=== PATIENT | female | born 1955 | race American Indian/Alaskan Native ===

== ENCOUNTER 2018-11-10 02:02 | Inpatient (IN) | payer BC ==
[2018-11-10 03:24] LABS: Hematocrit 24.4 % (30.3-42.9); Hemoglobin 8.3 gm/dl (10.1-14.3); Mean Corpuscular HGB Conc 34 % (30-34); Mean Corpuscular Volume 89 fl (79-97); Platelet Count 225 K/mm3 (140-440); Red Blood Count 2.76 M/mm3 (3.65-5.03); Red Cell Distribution Width 13.6 % (13.2-15.2)
[2018-11-10 03:36] LABS: INR 1.15 (0.87-1.13)
[2018-11-10 03:45] LABS: Calcium 8.7 mg/dL (8.4-10.2)
--- NOTE | 2018-11-10 03:50 | XRay Report ---
PROCEDURE: XR CHEST 1V AP TECHNIQUE: Chest radiograph single view. HISTORY: weakness COMPARISONS: None . FINDINGS: Heart: The heart is enlarged.. Mediastinum/Vessels: Normal. Lungs/Pleural space: There are bilateral pulmonary infiltrates greater on the right. There is no ple ural effusion or pneumothorax.. Bony thorax: No acute osseous abnormality. Life support devices: None. IMPRESSION: The heart is enlarged.. There are bilateral pulmonary infiltrates greater on the right. There is no pleural effusion or pneum othorax... This document is electronically signed by Germain Goss MD., November 10 2018 03:48:23 AM ET
[2018-11-10] MEDS ORDERED: LEVAQUIN 500MG/100ML 500 MG/100 ML BAG IV ONE (04:16)
[2018-11-10] MEDS ORDERED: LASIX IV ONE (04:17)
--- NOTE | 2018-11-10 04:18 | Emergency Department Report ---
ED General Adult HPI - General Chief complaint: Weakness Stated complaint: WEAKNESS Time Seen by Provider: 11/10/18 04:03 Source: patient, family, EMS (ems notes not available at time of chart dictation), RN notes reviewed Mode of arrival: Stretcher Limitations: Physical Limitation - History of Present Illness Initial comments: This is a 63-year-old female. The patient is not known to this provider previously. She recently came here from [place]. She reports a history of chronic lymphedema and her upper or lower extremities, and possible renal i nsufficiency. She also has a history of hypertension and high cholesterol. She reports that she was admitted to a hospital in [place] about a month ago for hypertension and elevated blood pressure. She does not know her last her most recent creatinine. She presents to the emergency room today with a complaint of painless weakness, malaise, fatigue, cough, shortness of breath. Symptoms present 1 week. Symptoms worse with physical exertion and decreased with rest. She endorses chronic shortness of breath. She endorses chronic lower and upper extremity edema. She does not think that her edema is worse than baseline. She denies irritative, obstructive urinary symptoms. -: Gradual, days(s), week(s) (1) Severity scale (0 -10): 0 Consistency: intermittent Improves with: rest Worsens with: movement Associated Symptoms: cough, loss of appetite, malaise, nausea/vomiting, shortness of breath, weakness - Related Data Home Medications Medication Instructions Recorded Confirmed Last Taken AtorvaSTATin [Lipitor] 80 mg PO HS 11/10/18 11/10/18 Unknown Calcium Carbonate/Vitamin D3 1 tab PO DAILY 11/10/18 11/10/18 Unknown [Calcium 500-Vit D3 600 Tablet] Carvedilol 1 tab PO BID 11/10/18 11/10/18 Unknown Ferrous Sulfate [Iron] 325 mg PO 3XW 11/10/18 11/10/18 Unknown Ondansetron [Zuplenz] 1 tab PO Q6HR PRN 11/10/18 11/10/18 Unknown Sodium Bicarbonate 1 tab PO BID 11/10/18 11/10/18 Unknown amLODIPine [Norvasc] 1 tab PO DAILY 11/10/18 11/10/18 Unknown glyBURIDE [Glyburide] 1 tab PO DAILY 11/10/18 11/10/18 Unknown hydrALAZINE [Apresoline TAB] 2 tab PO QID 11/10/18 11/10/18 Unknown metFORMIN [Glucophage] 1 tab PO BID 11/10/18 11/10/18 Unknown Allergies Allergy/AdvReac Type Severity Reaction Status Date / Time No Known Allergies Allergy Unverified 11/10/18 03:12 ED Review of Systems ROS: Stated complaint: WEAKNESS Other details as noted in HPI Constitutional: malaise, weakness. denies: fever Eyes: denies: vision change Respiratory: cough, shortness of breath, SOB with exertion, SOB at rest, wheezing Cardiovascular: dyspnea on exertion, edema. denies: chest pain Gastrointestinal: denies: vomiting Genitourinary: denies: dysuria Musculoskeletal: arthralgia, myalgia Skin: denies: lesions Psychiatric: as per HPI ED Past Medical Hx - Past Medical History Previous Medical History?: Yes Hx Hypertension: Yes Hx Diabetes: Yes Additional medical history: Breast CA, kidney problem (unspecified) - Surgical History Past Surgical History?: Yes Additional Surgical History: lumpectomy, x2 - Social History Smoking Status: Never Smoker Substance Use Type: None - Medications Home Medications: Home Medications Medication Instructions Recorded Confirmed Last Taken Type AtorvaSTATin [Lipitor] 80 mg PO HS 11/10/18 11/10/18 Unknown History Calcium Carbonate/Vitamin D3 1 tab PO DAILY 11/10/18 11/10/18 Unknown History [Calcium 500-Vit D3 600 Tablet] Carvedilol 1 tab PO BID 11/10/18 11/10/18 Unknown History Ferrous Sulfate [Iron] 325 mg PO 3XW 11/10/18 11/10/18 Unknown History Ondansetron [Zuplenz] 1 tab PO Q6HR PRN 11/10/18 11/10/18 Unknown History Sodium Bicarbonate 1 tab PO BID 11/10/18 11/10/18 Unknown History amLODIPine [Norvasc] 1 tab PO DAILY 11/10/18 11/10/18 Unknown History glyBURIDE [Glyburide] 1 tab PO DAILY 11/10/18 11/10/18 Unknown History hydrALAZINE [Apresoline TAB] 2 tab PO QID 11/10/18 11/10/18 Unknown History metFORMIN [Glucophage] 1 tab PO BID 11/10/18 11/10/18 Unknown History ED Physical Exam - General Limitations: No Limitations General appearance: alert, in no apparent distress - Head Head exam: Present: atraumatic, normocephalic - Eye Eye exam: Present: normal appearance, EOMI. Absent: nystagmus - ENT ENT exam: Present: normal exam, normal orophraynx, mucous membranes moist, normal external ear exam - Neck Neck exam: Present: normal inspection, full ROM. Absent: tenderness, meningismus - Respiratory Respiratory exam: Present: rales, rhonchi. Absent: respiratory distress - Cardiovascular Cardiovascular Exam: Present: regular rate, normal rhythm, normal heart sounds, systolic murmur (2/6 systolic murmur, heard greatest at the right and left seco nd intercostal space). Absent: bradycardia, tachycardia, irregular rhythm, diastolic murmur, rubs, gallop - GI/Abdominal GI/Abdominal exam: Present: soft. Absent: distended, tenderness, guarding, rebound, rigid, pulsatile mass - Extremities Exam Extremities exam: Present: normal inspection, full ROM, pedal edema (2+ edema in the lower extremities bilaterally. Edema noted in the upper extremities bilaterally.), other (2+ pulses noted in the bilateral upper, lower extremities. Compartments soft. No long bony tenderness. The pelvis is stable.). Absent: calf tenderness - Back Exam Back exam: Present: normal inspection, full ROM. Absent: tenderness, CVA tenderness (R), paraspinal tenderness, vertebral tenderness - Neurological Exam Neurological exam: Present: alert, oriented X3, CN II-XII intact, other (Extraocular movements intact. Tongue midline. No facial droop. Facial sensation intact to light touch in the V1, V2, V3 distribution bilaterally. 5 and 5 strength in 4 extremities.. Sensation is intact to light touch in 4 extremities.). Absent: motor sensory deficit - Psychiatric Psychiatric exam: Present: normal affect, normal mood - Skin Skin exam: Present: warm, dry, intact, normal color. Absent: rash ED Course Vital Signs 11/10/18 11/10/18 11/10/18 02:40 03:00 04:00 Temperature 98.5 F Pulse Rate 83 81 77 Respiratory 22 21 19 Rate Blood Pressure 134/65 134/65 160/74 Blood Pressure 134/65 [Right] O2 Sat by Pulse 89 95 91 Oximetry 11/10/18 11/10/18 05:00 05:15 Temperature Pulse Rate 81 89 Respiratory 23 18 Rate Blood Pressure 191/86 Blood Pressure 143/68 [Right] O2 Sat by Pulse 90 95 Oximetry - Reevaluation(s) Reevaluation #1: 11/10/18 05:05 Differential diagnosis, including not limited to: Renal insufficiency, pulmonary edema, dependent edema, lymphedema, pneumonia Assessment and plan: 63-year-old female with weakness, shortness of breath, malaise and fatigue. Has crackles and rales on her physical examination, is hypoxic on room air to 88, 89%. X-ray interpretation by radiology is reviewed and appreciated, however, based off of the patient's history, I suspect that her etiology for her shortness of breath is multifactorial, may include fluid overload, as well as pneumonia. She will be given supplemental oxygen, 60 mg of Lasix, appropriate Levaquin therapy, and she'll be admitted to the medical service. The Hospital physician, Dr. Suman Jauregui has accepted the patient to the medical service. ED Medical Decision Making - Lab Data Result diagrams: 11/10/18 03:15 11/10/18 03:15 Vital Signs 11/10/18 11/10/18 11/10/18 02:40 03:00 04:00 Temperature 98.5 F Pulse Rate 83 81 77 Respiratory 22 21 19 Rate Blood Pressure 134/65 134/65 160/74 Blood Pressure 134/65 [Right] O2 Sat by Pulse 89 95 91 Oximetry Lab Results 11/10/18 11/10/18 11/10/18 Range/Units 03:15 03:15 03:15 WBC 8.0 (4.5-11.0) K/mm3 RBC 2.76 L (3.65-5.03) M/mm3 Hgb 8.3 L (10.1-14.3) gm/dl Hct 24.4 L (30.3-42.9) % MCV 89 (79-97) fl MCH 30 (28-32) pg MCHC 34 (30-34) % RDW 13.6 (13.2-15.2) % Plt Count 225 (140-440) K/mm3 PT 15.4 H (12.2-14.9) Sec. INR 1.15 H (0.87-1.13) Sodium 135 L (137-145) mmol/L Potassium 4.5 (3.6-5.0) mmol/L Chloride 102.5 (98-107) mmol/L Carbon Dioxide 16 L (22-30) mmol/L Anion Gap 21 mmol/L BUN 42 H (7-17) mg/dL Creatinine 3.4 H (0.7-1.2) mg/dL Estimated GFR 17 ml/min BUN/Creatinine Ratio 12 % Glucose 169 H (65-100) mg/dL Calcium 8.7 (8.4-10.2) mg/dL Magnesium 1.70 (1.7-2.3) mg/dL TSH (0.270-4.200) mlU/mL 11/10/18 Range/Units 03:15 WBC (4.5-11.0) K/mm3 RBC (3.65-5.03) M/mm3 Hgb (10.1-14.3) gm/dl Hct (30.3-42.9) % MCV (79-97) fl MCH (28-32) pg MCHC (30-34) % RDW (13.2-15.2) % Plt Count (140-440) K/mm3 PT (12.2-14.9) Sec. INR (0.87-1.13) Sodium (137-145) mmol/L Potassium (3.6-5.0) mmol/L Chloride (98-107) mmol/L Carbon Dioxide (22-30) mmol/L Anion Gap mmol/L BUN (7-17) mg/dL Creatinine (0.7-1.2) mg/dL Estimated GFR ml/min BUN/Creatinine Ratio % Glucose (65-100) mg/dL Calcium (8.4-10.2) mg/dL Magnesium (1.7-2.3) mg/dL TSH 2.950 (0.270-4.200) mlU/mL - EKG Data -: EKG Interpreted by Tn EKG shows normal: sinus rhythm Rate: normal - EKG Data When compared to previous EKG there are: previous EKG unavailable 11/10/18 05:04 Sinus rhythm, 80 bpm, left axis deviation, left anterior fascicular block, QTC within normal limits, abnormal EKG, no prior for comparison, not consistent with ST elevation myocardial infarction. - Radiology Data Radiology results: report reviewed, image reviewed X-ray of the chest suggests infiltrates, no obvious pneumothorax Critical Care Time: Yes Critical care time in (mins) excluding proc time.: 35 Critical care attestation.: If time is entered above; I have spent that time in minutes in the direct care of this critically ill patient, excluding procedure time. ED Disposition Clinical Impression: Fluid overload, Renal insufficiency, Dyspnea Disposition: OP ADMIT IP TO THIS HOSP Is pt being admited?: Yes Condition: Good Referrals: YOHAN MAGANA MD [Primary Care Provider] - 3-5 Days
[2018-11-10 06:57] LABS: Bilirubin,Urine NEG (Negative); Blood,Urine NEG (Negative); Color,Urine Yellow (Yellow); Mucus,Urine FEW /HPF; Urobilinogen,Urine < 2.0 mg/dL (<2.0)
[2018-11-10] MEDS ORDERED: ONDANSETRON PO PRN (09:09)
[2018-11-10] MEDS ORDERED: D50W (25GM) Syringe IV PRN (09:11)
[2018-11-10] MEDS ORDERED: SODIUM CHLORIDE FLUSH SYRINGE 10 ML IV PRN (09:11)
[2018-11-10] MEDS ORDERED: TYLENOL PO PRN (09:11)
--- NOTE | 2018-11-10 09:28 | History and Physical Report ---
History of Present Illness Date of examination: 11/10/18 Date of admission: 11/10/18 05:06 Chief complaint: sob History of present illness: 63-year-old female with significant past medical history of diabetes mellitus type 2, hypertension, chronic lymphedema and hyperlipidemia who presents to the emergency department with complaints of generalized weakness, fatigue and dyspnea. The patient presents to this area recently moving from [place]. Patient reports admission and hospital [place] approximately 2 weeks ago for accelerated hypertension. Patient reports associated cough cold like symptoms with her dyspnea that has lasted for approximately 1 week. Patient reports that her symptoms are worse with physical exertion. Patient does have extremity edema but appears to be at baseline. No fever or chills. No headache or visual disturbance. Past History Past Medical History: hypertension, hyperlipidemia Past Surgical History: No surgical history Social history: no significant social history Family history: hypertension Medications and Allergies Allergies Allergy/AdvReac Type Severity Reaction Status Date / Time No Known Allergies Allergy Verified 11/10/18 09:26 Home Medications Medication Instructions Recorded Confirmed Last Taken Type AtorvaSTATin [Lipitor] 80 mg PO HS 11/10/18 11/10/18 Unknown History Calcium Carbonate/Vitamin D3 1 tab PO DAILY 11/10/18 11/10/18 Unknown History [Calcium 500-Vit D3 600 Tablet] Carvedilol 1 tab PO BID 11/10/18 11/10/18 Unknown History Ferrous Sulfate [Iron] 325 mg PO 3XW 11/10/18 11/10/18 Unknown History Ondansetron [Zuplenz] 1 tab PO Q6HR PRN 11/10/18 11/10/18 Unknown History Sodium Bicarbonate 1 tab PO BID 11/10/18 11/10/18 Unknown History amLODIPine [Norvasc] 1 tab PO DAILY 11/10/18 11/10/18 Unknown History glyBURIDE [Glyburide] 1 tab PO DAILY 11/10/18 11/10/18 Unknown History hydrALAZINE [Apresoline TAB] 2 tab PO QID 11/10/18 11/10/18 Unknown History metFORMIN [Glucophage] 1 tab PO BID 11/10/18 11/10/18 Unknown History Active Meds: Active Medications Amlodipine Besylate (Norvasc) mg PO DAILY [facility] Atorvastatin Calcium (Lipitor) 80 mg PO HS [facility] Carvedilol (Coreg) mg PO BID [facility] Ferrous Sulfate (Feosol) 325 mg PO 3XW [facility] Hydralazine HCl (Apresoline) mg PO QID [facility] Miscellaneous Medication (Calcium Carbonate/Vitamin D3 [Calcium 500-Vit D3 600 Tablet]) 1 tab PO DAILY [facility] Miscellaneous Medication (Ondansetron [Zuplenz]) 1 tab PO Q6HR PRN PRN Reason: Nausea Sodium Bicarbonate (Sodium Bicarbonate) mg PO BID [facility] Review of Systems All systems: negative Exam - Constitutional Vitals: Temp Pulse Resp BP Pulse Ox 98.5 F 89 18 143/68 95 11/10/18 02:40 11/10/18 05:15 11/10/18 05:15 11/10/18 05:15 11/10/18 05:15 General appearance: Present: no acute distress, well-nourished - EENT Eyes: Present: PERRL ENT: hearing intact, clear oral mucosa - Neck Neck: Present: supple, normal ROM - Respiratory Respiratory effort: normal Respiratory: bilateral: diminished, rales - Cardiovascular Heart Sounds: Present: S1 & S2. Absent: rub, click - Extremities Extremities: pulses symmetrical Extremity abnormal: edema (bilateral) Peripheral Pulses: within normal limits - Abdominal General gastrointestinal: Present: soft, non-tender, non-distended, normal bowel sounds Female genitourinary: Present: normal - Integumentary Integumentary: Present: clear, warm, dry - Musculoskeletal Musculoskeletal: gait normal, strength equal bilaterally - Psychiatric Psychiatric: appropriate mood/affect, intact judgment & insight - Neurologic Neurologic: CNII-XII intact, moves all extremities Results - Labs CBC & Chem 7: 11/10/18 03:15 11/10/18 03:15 Labs: Laboratory Last Values WBC 8.0 K/mm3 (4.5-11.0) 11/10/18 03:15 RBC 2.76 M/mm3 (3.65-5.03) L 11/10/18 03:15 Hgb 8.3 gm/dl (10.1-14.3) L 11/10/18 03:15 Hct 24.4 % (30.3-42.9) L 11/10/18 03:15 MCV 89 fl (79-97) 11/10/18 03:15 MCH 30 pg (28-32) 11/10/18 03:15 MCHC 34 % (30-34) 11/10/18 03:15 RDW 13.6 % (13.2-15.2) 11/10/18 03:15 Plt Count 225 K/mm3 (140-440) 11/10/18 03:15 PT 15.4 Sec. (12.2-14.9) H 11/10/18 03:15 INR 1.15 (0.87-1.13) H 11/10/18 03:15 Sodium 135 mmol/L (137-145) L 11/10/18 03:15 Potassium 4.5 mmol/L (3.6-5.0) 11/10/18 03:15 Chloride 102.5 mmol/L (98-107) 11/10/18 03:15 Carbon Dioxide 16 mmol/L (22-30) L 11/10/18 03:15 Anion Gap 21 mmol/L 11/10/18 03:15 BUN 42 mg/dL (7-17) H 11/10/18 03:15 Creatinine 3.4 mg/dL (0.7-1.2) H 11/10/18 03:15 Estimated GFR 17 ml/min 11/10/18 03:15 BUN/Creatinine Ratio 12 % 11/10/18 03:15 Glucose 169 mg/dL (65-100) H 11/10/18 03:15 POC Glucose 149 (70-105) H 11/10/18 08:46 Lactic Acid 0.60 mmol/L (0.7-2.0) L 11/10/18 04:30 Calcium 8.7 mg/dL (8.4-10.2) 11/10/18 03:15 Magnesium 1.70 mg/dL (1.7-2.3) 11/10/18 03:15 NT-Pro-B Natriuret Pep 5293 pg/mL (0-900) H 11/10/18 04:30 TSH 2.950 mlU/mL (0.270-4.200) 11/10/18 03:15 Urine Color Yellow (Yellow) 11/10/18 06:25 Urine Turbidity Slightly-cloudy (Clear) 11/10/18 06:25 Urine pH 5.0 (5.0-7.0) 11/10/18 06:25 Ur Specific [place] 1.008 (1.003-1.030) 11/10/18 06:25 Urine Protein 100 mg/dl mg/dL (Negative) 11/10/18 06:25 Urine Glucose (UA) Neg mg/dL (Negative) 11/10/18 06:25 Urine Ketones Neg mg/dL (Negative) 11/10/18 06:25 Urine Blood Neg (Negative) 11/10/18 06:25 Urine Nitrite Neg (Negative) 11/10/18 06:25 Urine Bilirubin Neg (Negative) 11/10/18 06:25 Urine Urobilinogen < 2.0 mg/dL (<2.0) 11/10/18 06:25 Ur Leukocyte Esterase Sm (Negative) 11/10/18 06:25 Urine WBC (Auto) 4.0 /HPF (0.0-6.0) 11/10/18 06:25 Urine RBC (Auto) 1.0 /HPF (0.0-6.0) 11/10/18 06:25 U Epithel Cells (Auto) 1.0 /HPF (0-13.0) 11/10/18 06:25 Urine Mucus Few /HPF 11/10/18 06:25 Assessment and Plan Assessment and plan: Acute hypoxic respiratory failure. Etiology is multifactorial secondary to CHF exacerbation, VENKATESH/OHS +/-healthcare associated pneumonia. Patient did have recent hospitalization and chest x-ray reveals bilateral infiltrates. Continue O2 for supportive care and BiPAP as clinically indicated. Acute heart failure. Etiology of systolic versus diastolic unknown but patient does have elevated BNP and pleural effusions. We will follow-up echocardiogram. Obtain old records. Consult cardiology Acute on chronic renal failure. We do not have a baseline creatinine to compare but the patient reports having some kidney issues diagnosed in March of last year. I suspect patient has underlying CKD. Again, attempt to obtain old records. Consult nephrology for further evaluation. ? Healthcare associated pneumonia. Patient with recent hospitalization and bilateral infiltrates. Start Levaquin. Diabetes mellitus type 2. We will hold the home medication Glucophage and glipizide given the renal insufficiency. Sliding-scale regular S1. Check hemoglobin A1c. Hypertension. Resume antihypertensive medications. Anemia. I suspect this is likely anemia of chronic kidney disease. Transfuse for hemoglobin less than 7. Check iron studies. Hyperlipidemia. Continue Lipitor. OHS/VENKATESH. Patient will likely need outpatient sleep study.
[2018-11-10] MEDS ORDERED: CALCIUM CARBONATE PO SCH (10:00)
[2018-11-10] MEDS ORDERED: VITAMIN D3 PO SCH (10:00)
[2018-11-10] MEDS ORDERED: FEOSOL PO SCH (10:00)
[2018-11-10] MEDS: APRESOLINE PO SCH ×4 (10:53→23:39)
[2018-11-10] MEDS: SODIUM BICARBONATE PO SCH ×2 (10:53→23:42)
[2018-11-10] MEDS: LOVENOX SUB-Q SCH (10:53)
[2018-11-10] MEDS: NORVASC PO SCH (10:54)
[2018-11-10] MEDS: K-DUR PO SCH (10:54)
[2018-11-10] MEDS: COREG PO SCH ×2 (10:54→23:41)
[2018-11-10] MEDS ORDERED: LEVAQUIN 250MG/50ML 250 MG/50 ML BAG IV NR (11:00)
[2018-11-10] MEDS: HumuLIN R SUB-Q SCH ×3 (14:05→23:41)
[2018-11-10] MEDS: OYSCO D 500 MG-200 UNIT PO SCH (16:15)
[2018-11-10] MEDS: SODIUM CHLORIDE FLUSH SYRINGE 10 ML IV SCH ×2 (16:19→23:43)
--- NOTE | 2018-11-10 22:25 | Consultation ---
History of Present Illness Consult date: 11/11/18 Consult reason: congestive heart failure History of present illness: 63-year-old female with significant past medical history of diabetes mellitus type 2, hypertension, chronic lymphedema and hyperlipidemia who presents to the emergency department with complaints of generalized weakness, fatigue and dyspnea. The patient presents to this area recently moving from [place]. Patient reports admission and hospital [place] approximately 2 weeks ago for accelerated hypertension. Patient now reports associated cough cold like symptoms with her dyspnea that has lasted for approximately 1 week. the patient denies any chest pain, but does state that her shortness of breath is worse with physical exertion. Patient does have extremity edema. Patient denies palpitations, dizziness or syncope. Past History Past Medical History: hypertension, hyperlipidemia Past Surgical History: No surgical history Social history: no significant social history Family history: hypertension Medications and Allergies Allergies Allergy/AdvReac Type Severity Reaction Status Date / Time No Known Allergies Allergy Verified 11/10/18 09:26 Home Medications Medication Instructions Recorded Confirmed Last Taken Type AtorvaSTATin [Lipitor] 80 mg PO HS 11/10/18 11/10/18 Unknown History Calcium Carbonate/Vitamin D3 1 tab PO DAILY 11/10/18 11/10/18 Unknown History [Calcium 500-Vit D3 600 Tablet] Carvedilol 1 tab PO BID 11/10/18 11/10/18 Unknown History Ferrous Sulfate [Iron] 325 mg PO 3XW 11/10/18 11/10/18 Unknown History Ondansetron [Zuplenz] 1 tab PO Q6HR PRN 11/10/18 11/10/18 Unknown History Sodium Bicarbonate 1 tab PO BID 11/10/18 11/10/18 Unknown History amLODIPine [Norvasc] 1 tab PO DAILY 11/10/18 11/10/18 Unknown History glyBURIDE [Glyburide] 1 tab PO DAILY 11/10/18 11/10/18 Unknown History hydrALAZINE [Apresoline TAB] 2 tab PO QID 11/10/18 11/10/18 Unknown History metFORMIN [Glucophage] 1 tab PO BID 11/10/18 11/10/18 Unknown History Active Meds: Active Medications Acetaminophen (Tylenol) 650 mg PO Q4H PRN PRN Reason: Pain MILD(1-3)/Fever >100.5/PICKERING Amlodipine Besylate (Norvasc) 10 mg PO DAILY [facility] Last Admin: 11/10/18 10:54 Dose: 10 mg Documented by: Atorvastatin Calcium (Lipitor) 80 mg PO HS [facility] Calcium/Vitamin D ([place] D 500 Mg-200 Unit) 1 each PO DAILY [facility] Last Admin: 11/10/18 16:15 Dose: 1 each Documented by: Carvedilol (Coreg) 25 mg PO BID [facility] Last Admin: 11/10/18 10:54 Dose: 25 mg Documented by: Dextrose (D50w (25gm) Syringe) 50 ml IV PRN PRN PRN Reason: Hypoglycemia Enoxaparin Sodium (Lovenox) 30 mg SUB-Q QDAY [facility] Last Admin: 11/10/18 10:53 Dose: 30 mg Documented by: Ferrous Sulfate (Feosol) 325 mg PO MoWeFr [facility] Furosemide (Lasix) 40 mg IV QDAY [facility] Hydralazine HCl (Apresoline) 25 mg PO QID [facility] Last Admin: 11/10/18 16:17 Dose: 25 mg Documented by: Levofloxacin/Dextrose (Levaquin 750mg/150ml) 750 mg in 150 mls @ 100 mls/hr IV Q48HR [facility]; Protocol Insulin Human Regular (Humulin R) 0 units SUB-Q ACHS [facility]; Protocol Last Admin: 11/10/18 17:56 Dose: 2 units Documented by: Ondansetron HCl (Zofran) 4 mg IV Q8H PRN PRN Reason: Nausea And Vomiting Potassium Chloride (K-Dur) 10 meq PO QDAY [facility] Last Admin: 11/10/18 10:54 Dose: 10 meq Documented by: Sodium Bicarbonate (Sodium Bicarbonate) 650 mg PO BID [facility] Last Admin: 11/10/18 10:53 Dose: 650 mg Documented by: Sodium Chloride (Sodium Chloride Flush Syringe 10 Ml) 10 ml IV BID [facility] Last Admin: 11/10/18 16:19 Dose: 10 ml Documented by: Sodium Chloride (Sodium Chloride Flush Syringe 10 Ml) 10 ml IV PRN PRN PRN Reason: LINE FLUSH Review of Systems All systems: negative (pertinent positives in HPI) Physical Examination Vital Signs Temp Pulse Resp BP Pulse Ox 98.5 F 83 22 134/65 89 11/10/18 02:40 11/10/18 02:40 11/10/18 02:40 11/10/18 02:40 11/10/18 02:40 General appearance: no acute distress HEENT: Positive: PERRL Cardiac: Positive: Reg Rate and Rhythm, S1/S2 Lungs: Positive: Normal Exam Neuro: Positive: Grossly Intact Abdomen: Positive: Unremarkable Extremities: Present: normal Results 11/11/18 04:32 11/11/18 04:32 Coagulation 11/10/18 Range/Units 03:15 PT 15.4 H (12.2-14.9) Sec. INR 1.15 H (0.87-1.13) CBC 11/10/18 Range/Units 03:15 WBC 8.0 (4.5-11.0) K/mm3 RBC 2.76 L (3.65-5.03) M/mm3 Hgb 8.3 L (10.1-14.3) gm/dl Hct 24.4 L (30.3-42.9) % Plt Count 225 (140-440) K/mm3 Comprehensive Metabolic Panel 11/10/18 Range/Units 03:15 Sodium 135 L (137-145) mmol/L Potassium 4.5 (3.6-5.0) mmol/L Chloride 102.5 (98-107) mmol/L Carbon Dioxide 16 L (22-30) mmol/L BUN 42 H (7-17) mg/dL Creatinine 3.4 H (0.7-1.2) mg/dL Glucose 169 H (65-100) mg/dL Calcium 8.7 (8.4-10.2) mg/dL Assessment and Plan Acute hypoxic respiratory failure. Etiology is multifactorial secondary to CHF exacerbation, VENKATESH/OHS +/-healthcare associated pneumonia. management per primary. Obtain old records. Gentle diuresis as tolerated. Strict I/Os and daily weights. Echo is pending to evaluate LV systolic and diastolic function. Acute on chronic renal failure - management per nephrology Healthcare associated pneumonia - management per primary Diabetes mellitus type 2 management per primary Hypertension - maximize medical therapy as tolerated Hyperlipidemia. Continue statin OHS/VENKATESH - on BiPAP.
[2018-11-11 06:22] LABS: Basophils % (Auto) 0.3 % (0.0-1.8); Eosinophils # (Auto) 0.1 K/mm3 (0.0-0.4); Eosinophils % (Auto) 1.6 % (0.0-4.3); Hematocrit 22.5 % (30.3-42.9); Hemoglobin 7.7 gm/dl (10.1-14.3); Lymphocytes # (Auto) 0.6 K/mm3 (1.2-5.4); Mean Corpuscular HGB Conc 34 % (30-34); Mean Corpuscular Volume 88 fl (79-97); Monocytes # (Auto) 0.5 K/mm3 (0.0-0.8); Monocytes % (Auto) 7.7 % (0.0-7.3); Platelet Count 210 K/mm3 (140-440); Red Blood Count 2.56 M/mm3 (3.65-5.03); Red Cell Distribution Width 13.4 % (13.2-15.2)
[2018-11-11 06:43] LABS: Calcium 8.7 mg/dL (8.4-10.2)
[2018-11-11] MEDS: HumuLIN R SUB-Q SCH ×4 (08:00→22:59)
[2018-11-11] MEDS: K-DUR PO SCH (10:12)
[2018-11-11] MEDS: LASIX IV SCH (10:12)
[2018-11-11] MEDS: SODIUM BICARBONATE PO SCH ×2 (10:12→23:10)
[2018-11-11] MEDS: LOVENOX SUB-Q SCH (10:12)
[2018-11-11] MEDS: NORVASC PO SCH (10:13)
[2018-11-11] MEDS: OYSCO D 500 MG-200 UNIT PO SCH (10:13)
[2018-11-11] MEDS: APRESOLINE PO SCH ×4 (10:13→23:09)
[2018-11-11] MEDS: COREG PO SCH ×2 (10:13→23:09)
[2018-11-11] MEDS: SODIUM CHLORIDE FLUSH SYRINGE 10 ML IV SCH ×2 (10:14→23:10)
--- NOTE | 2018-11-11 10:15 | Consultation ---
History of Present Illness - History of Present Illness Thank you for the consultation Source of information: Patient herself, History of presenting illness Patient is 63-year-old -[place] female who has known history of chronic kidney disease, patient was told to have elevated creatinine approximately 4-5 years ago by her primary care physician but she does not recall her baseline creatinine. She also has been told to have protein in the urine but does not recall extent. Patient has been admitted here with uncontrolled hypertension, she does not use any form of normal started medication. She has no known history of any lupus hepatitis paraproteinemias She also does not recall her baseline creatinine, her dietary compliance has been extremely poor. Past medical history significant for: Long-standing hypertension Diabetes mellitus type 2 Proteinuria Chronic edema Hyperlipidemia Current allergies: Reviewed Home medication/present medication: Reviewed Social history: Reviewed from the current chart Family history: Reviewed from the current chart Review of system is positive for; All other review of systems were negative Physical examination Vitals: Reviewed from this admission Gen.: No acute distress HEENT: Normocephalic/atraumatic skull oral mucosa moist minimal pallor no icterus or uremic order Neck: Supple without any thyromegaly nodular mass or JVD Chest Ffaint basilar crackles otherwise unremarkable Heart: Regular rate and rhythm S1 and S2 heard no S3-S4 no pericardial rub Abdomen: Soft nontender no guarding rigidity rebound organomegaly no suprapubic masses, no CVA tenderness no renal bruit Back: No CVA tenderness Derm: No petechial rashes dry skin Extremity: Pulses palpable no peripheral cyanosis, 2+ edema dry skin Neurological: Alert awake follows commands Psychiatric: No agitation and aggression Labs and x-rays: Were reviewed from this admission Assessment and plan; Renal failure severe, estimated GFR currently around 15 mL/m with evidence of metabolic acidosis mild hyponatremia anemia No old records available in our system patient was admitted with a baseline c reatinine of around 3.4 as of yesterday patient has recently moved from [place] Does have history of chronic edema both lower extremity Patient will need full workup for renal failure Currently pending echocardiogram Uncontrolled hypertension blood pressure has been as high as close to 200 Hypoxic respiratory failure oxygen saturation room air was about 88-89% Chest x-ray shows evidence of bilateral pulmonary infiltrates/ Possible pneumonia, underlying history of obstructive sleep apnea that makes her high risk for pulmonary hypertension, Multiple risk factors for underlying chronic kidney disease including diabetes hypertension metabolic acidosis Does suffer from chronic shortness of breath as well as chronic swelling of both lower extremity, Had a detailed discussion with patient about the plan of care from renal standpoint. Patient's renal prognosis appears to be guarded to poor at this time All questions were answered labs and pertinent imaging findings were explained to the patient and simple Arabic. Advised patient to make an appointment for follow-up within a week of the discharge, for proper renal care We'll continue to follow and make recommendation from renal standpoint Thank you for the consultation. Past History Past Medical History: hypertension, hyperlipidemia Past Surgical History: No surgical history Social history: no significant social history Family history: hypertension Medications and Allergies Allergies Allergy/AdvReac Type Severity Reaction Status Date / Time No Known Allergies Allergy Verified 11/10/18 09:26 Home Medications Medication Instructions Recorded Confirmed Last Taken Type AtorvaSTATin [Lipitor] 80 mg PO HS 11/10/18 11/10/18 Unknown History Calcium Carbonate/Vitamin D3 1 tab PO DAILY 11/10/18 11/10/18 Unknown History [Calcium 500-Vit D3 600 Tablet] Carvedilol 1 tab PO BID 11/10/18 11/10/18 Unknown History Ferrous Sulfate [Iron] 325 mg PO 3XW 11/10/18 11/10/18 Unknown History Ondansetron [Zuplenz] 1 tab PO Q6HR PRN 11/10/18 11/10/18 Unknown History Sodium Bicarbonate 1 tab PO BID 11/10/18 11/10/18 Unknown History amLODIPine [Norvasc] 1 tab PO DAILY 11/10/18 11/10/18 Unknown History glyBURIDE [Glyburide] 1 tab PO DAILY 11/10/18 11/10/18 Unknown History hydrALAZINE [Apresoline TAB] 2 tab PO QID 11/10/18 11/10/18 Unknown History metFORMIN [Glucophage] 1 tab PO BID 11/10/18 11/10/18 Unknown History Active Meds: Active Medications Acetaminophen (Tylenol) 650 mg PO Q4H PRN PRN Reason: Pain MILD(1-3)/Fever >100.5/PICKERING Amlodipine Besylate (Norvasc) 10 mg PO DAILY [facility] Last Admin: 11/11/18 10:13 Dose: 10 mg Documented by: Atorvastatin Calcium (Lipitor) 80 mg PO HS [facility] Last Admin: 11/10/18 23:42 Dose: 80 mg Documented by: Calcium/Vitamin D (Oysco D 500 Mg-200 Unit) 1 each PO DAILY [facility] Last Admin: 11/11/18 10:13 Dose: 1 each Documented by: Carvedilol (Coreg) 25 mg PO BID [facility] Last Admin: 11/11/18 10:13 Dose: 25 mg Documented by: Dextrose (D50w (25gm) Syringe) 50 ml IV PRN PRN PRN Reason: Hypoglycemia Enoxaparin Sodium (Lovenox) 30 mg SUB-Q QDAY [facility] Last Admin: 11/11/18 10:12 Dose: 30 mg Documented by: Ferrous Sulfate (Feosol) 325 mg PO MoWeFr [facility] Furosemide (Lasix) 40 mg IV QDAY [facility] Last Admin: 11/11/18 10:12 Dose: 40 mg Documented by: Hydralazine HCl (Apresoline) 25 mg PO QID [facility] Last Admin: 11/11/18 10:13 Dose: 25 mg Documented by: Levofloxacin/Dextrose (Levaquin 750mg/150ml) 750 mg in 150 mls @ 100 mls/hr IV Q48HR [facility]; Protocol Insulin Human Regular (Humulin R) 0 units SUB-Q ACHS [facility]; Protocol Last Admin: 11/11/18 08:00 Dose: Not Given Documented by: Ondansetron HCl (Zofran) 4 mg IV Q8H PRN PRN Reason: Nausea And Vomiting Potassium Chloride (K-Dur) 10 meq PO QDAY [facility] Last Admin: 11/11/18 10:12 Dose: 10 meq Documented by: Sodium Bicarbonate (Sodium Bicarbonate) 650 mg PO BID [facility] Last Admin: 11/11/18 10:12 Dose: 650 mg Documented by: Sodium Chloride (Sodium Chloride Flush Syringe 10 Ml) 10 ml IV BID [facility] Last Admin: 11/11/18 10:14 Dose: 10 ml Documented by: Sodium Chloride (Sodium Chloride Flush Syringe 10 Ml) 10 ml IV PRN PRN PRN Reason: LINE FLUSH Exam - Vital Signs Vital signs: Vital Signs Temp Pulse Resp BP Pulse Ox 98.5 F 83 22 134/65 89 11/10/18 02:40 11/10/18 02:40 11/10/18 02:40 11/10/18 02:40 11/10/18 02:40 Results - Lab Results 11/11/18 04:32 11/11/18 04:32 Most recent lab results Calcium 8.7 mg/dL (8.4-10.2) 11/11/18 04:32 Magnesium 1.70 mg/dL (1.7-2.3) 11/10/18 03:15
--- NOTE | 2018-11-11 11:14 | Progress Note ---
Assessment and Plan Assessment and plan: Acute hypoxic respiratory failure. Etiology is multifactorial secondary to CHF exacerbation, VENKATESH/OHS +/-healthcare associated pneumonia. Patient did have recent hospitalization and chest x-ray reveals bilateral infiltrates. Continue O2 for supportive care and BiPAP as clinically indicated. Acute heart failure. Etiology of systolic versus diastolic unknown but patient does have elevated BNP and pleural effusions. We will follow-up echocardiogram. Obtain old records. Cardiology following. Acute on chronic renal failure. Nephrology consultation pending. ? Healthcare associated pneumonia. Patient with recent hospitalization and bilateral infiltrates. Continue Levaquin. Diabetes mellitus type 2. Continue to hold Glucophage and glipizide given the renal insufficiency. Sliding-scale regular insulin. Hemoglobin A1c 6.9. Hypertension. Continue antihypertensive medications. Good control Anemia. I suspect this is likely anemia of chronic kidney disease. Transfuse for hemoglobin less than 7. Check iron studies. Hyperlipidemia. Continue Lipitor. OHS/VENKATESH. Patient will likely need outpatient sleep study. History Interval history: No new issues overnight. Hospitalist Physical - Constitutional Vitals: Temp Pulse Resp BP Pulse Ox 98.7 F 85 20 138/61 93 11/11/18 06:20 11/11/18 10:13 11/11/18 06:20 11/11/18 10:13 11/11/18 10:00 General appearance: Present: no acute distress - EENT Eyes: Present: PERRL, EOM intact ENT: hearing intact, clear oral mucosa, dentition normal - Neck Neck: Present: supple, normal ROM - Respiratory Respiratory effort: normal Respiratory: bilateral: CTA - Cardiovascular Rhythm: regular Heart Sounds: Present: S1 & S2. Absent: gallop, rub - Extremities Extremities: no ischemia, No edema, Full ROM - Abdominal General gastrointestinal: soft, non-tender, non-distended, normal bowel sounds - Integumentary Integumentary: Present: clear, warm, dry - Neurologic Neurologic: CNII-XII intact, moves all extremities Results - Labs CBC & Chem 7: 11/11/18 04:32 11/11/18 04:32 Labs: Laboratory Last Values WBC 6.9 K/mm3 (4.5-11.0) 11/11/18 04:32 RBC 2.56 M/mm3 (3.65-5.03) L 11/11/18 04:32 Hgb 7.7 gm/dl (10.1-14.3) L 11/11/18 04:32 Hct 22.5 % (30.3-42.9) L 11/11/18 04:32 MCV 88 fl (79-97) 11/11/18 04:32 MCH 30 pg (28-32) 11/11/18 04:32 MCHC 34 % (30-34) 11/11/18 04:32 RDW 13.4 % (13.2-15.2) 11/11/18 04:32 Plt Count 210 K/mm3 (140-440) 11/11/18 04:32 Lymph % (Auto) 9.0 % (13.4-35.0) L 11/11/18 04:32 [place] % (Auto) 7.7 % (0.0-7.3) H 11/11/18 04:32 Eos % (Auto) 1.6 % (0.0-4.3) 11/11/18 04:32 Baso % (Auto) 0.3 % (0.0-1.8) 11/11/18 04:32 Lymph # 0.6 K/mm3 (1.2-5.4) L 11/11/18 04:32 [place] # 0.5 K/mm3 (0.0-0.8) 11/11/18 04:32 Eos # 0.1 K/mm3 (0.0-0.4) 11/11/18 04:32 Baso # 0.0 K/mm3 (0.0-0.1) 11/11/18 04:32 Seg Neutrophils % 81.4 % (40.0-70.0) H 11/11/18 04:32 Seg Neutrophils # 5.6 K/mm3 (1.8-7.7) 11/11/18 04:32 PT 15.4 Sec. (12.2-14.9) H 11/10/18 03:15 INR 1.15 (0.87-1.13) H 11/10/18 03:15 Sodium 138 mmol/L (137-145) 11/11/18 04:32 Potassium 4.5 mmol/L (3.6-5.0) 11/11/18 04:32 Chloride 103.9 mmol/L (98-107) 11/11/18 04:32 Carbon Dioxide 17 mmol/L (22-30) L 11/11/18 04:32 Anion Gap 22 mmol/L 11/11/18 04:32 BUN 46 mg/dL (7-17) H 11/11/18 04:32 Creatinine 3.7 mg/dL (0.7-1.2) H 11/11/18 04:32 Estimated GFR 15 ml/min 11/11/18 04:32 BUN/Creatinine Ratio 12 % 11/11/18 04:32 Glucose 97 mg/dL (65-100) 11/11/18 04:32 POC Glucose 101 (70-105) 11/11/18 07:40 Hemoglobin A1c 6.9 % (4-6) H 11/10/18 10:41 Lactic Acid 0.60 mmol/L (0.7-2.0) L 11/10/18 04:30 Calcium 8.7 mg/dL (8.4-10.2) 11/11/18 04:32 Magnesium 1.70 mg/dL (1.7-2.3) 11/10/18 03:15 NT-Pro-B Natriuret Pep 5293 pg/mL (0-900) H 11/10/18 04:30 TSH 2.950 mlU/mL (0.270-4.200) 11/10/18 03:15 Urine Color Yellow (Yellow) 11/10/18 06:25 Urine Turbidity Slightly-cloudy (Clear) 11/10/18 06:25 Urine pH 5.0 (5.0-7.0) 11/10/18 06:25 Ur Specific [place] 1.008 (1.003-1.030) 11/10/18 06:25 Urine Protein 100 mg/dl mg/dL (Negative) 11/10/18 06:25 Urine Glucose (UA) Neg mg/dL (Negative) 11/10/18 06:25 Urine Ketones Neg mg/dL (Negative) 11/10/18 06:25 Urine Blood Neg (Negative) 11/10/18 06:25 Urine Nitrite Neg (Negative) 11/10/18 06:25 Urine Bilirubin Neg (Negative) 11/10/18 06:25 Urine Urobilinogen < 2.0 mg/dL (<2.0) 11/10/18 06:25 Ur Leukocyte Esterase Sm (Negative) 11/10/18 06:25 Urine WBC (Auto) 4.0 /HPF (0.0-6.0) 11/10/18 06:25 Urine RBC (Auto) 1.0 /HPF (0.0-6.0) 11/10/18 06:25 U Epithel Cells (Auto) 1.0 /HPF (0-13.0) 11/10/18 06:25 Urine Mucus Few /HPF 11/10/18 06:25
[2018-11-11 12:28] LABS: Iron 18 ug/dL (37-170); Total Iron Binding Capacity 157 mcg/dL (250-450)
[2018-11-11] MEDS: ZOFRAN IV PRN (17:56)
[2018-11-12 00:12] LABS: Bilirubin,Urine NEG (Negative); Blood,Urine NEG (Negative); Color,Urine Yellow (Yellow); Mucus,Urine FEW /HPF; Urobilinogen,Urine < 2.0 mg/dL (<2.0)
[2018-11-12 00:21] LABS: Creatinine,Urine 121.5 mg/dL (0.1-20.0)
[2018-11-12] MEDS: HumuLIN R SUB-Q SCH ×3 (08:43→16:59)
[2018-11-12] MEDS: FEOSOL PO SCH (09:21)
[2018-11-12] MEDS: OYSCO D 500 MG-200 UNIT PO SCH (09:21)
[2018-11-12] MEDS: SODIUM BICARBONATE PO SCH ×3 (09:21→22:50)
[2018-11-12] MEDS: LEVAQUIN 750MG/150ML 750 MG/150 ML BAG IV SCH (09:21)
[2018-11-12] MEDS: LASIX IV SCH (09:21)
[2018-11-12] MEDS: LOVENOX SUB-Q SCH (09:21)
[2018-11-12] MEDS: K-DUR PO SCH (09:21)
[2018-11-12] MEDS ORDERED: FERRLECIT 250 MG in NACL 0.9% 100 ML IV ONE (09:55)
--- NOTE | 2018-11-12 09:55 | Progress Note ---
Subjective Interval history: Patient was seen today for follow-up on multiple renal related issues Events of 24 hours were noted, reviewed interdisciplinary Notes Vitals labs intake output medications were reviewed Past medical history: Reviewed Allergies: Reviewed Family history/social history: Reviewed Physical examination Vitals: Reviewed HEENT: Oral mucosa moist, no pallor or icterus Neck: Supple without any thyromegaly no evidence of any JVD Chest: Essentially clear to auscultation anteriorly no crackles or wheezes Heart: Regular rate and rhythm S1 and S2 heard no S3-S4 Abdomen: Soft nontender, no organomegaly no dullness in the flank Extremity: Dry skin less than 1+ peripheral edema, pitting no peripheral discoloration or cyanosis Dermatology: No petechial rashes Psychiatric: No evidence of vegetation progression Neurological: My assessment and plan are as follows Chronic kidney disease, baseline creatinine is currently unclear to me Will need to obtain records from the previous hospitalization patient was also advised to contact her primary care physician Follow-up on the pending lab, ultrasonogram report, renal prognosis guarded to poor at this time patient made aware Metabolic acidosis Will start the patient and sodium bicarbonate 3 tablets twice a day and follow Very poor eating habit, lifestyle, diet that needs to change Anemia with iron deficiency saturation only 18% she will need further workup B12 folic acid appears to be normal patient will benefit from iron infusion as well as erythropoietin therapy, will give her iron to 50 mg as well as erythropoietin 20,000 unit once Diabetes mellitus type 2 long-standing more than 15 years duration current hemoglobin A1c is around 6.9 Hyponatremia, currently better sodium 138 Adequately counseled and educated regarding all the renal related issues Advised to make an appointment in the office for follow-up upon discharge We'll continue to follow and make recommendation from renal standpoint Objective - Vital Signs Vital signs: Vital Signs - 12hr 11/11/18 11/11/18 11/12/18 23:09 23:20 05:20 Temperature 98.2 F 98.8 F Pulse Rate 79 80 73 Respiratory 20 18 Rate Blood Pressure 154/75 140/63 114/49 Blood Pressure [Right] O2 Sat by Pulse 93 93 Oximetry 11/12/18 09:26 Temperature Pulse Rate 72 Respiratory Rate Blood Pressure Blood Pressure 113/51 [Right] O2 Sat by Pulse Oximetry - Lab 11/11/18 04:32 11/11/18 04:32 Most recent lab results Calcium 8.7 mg/dL (8.4-10.2) 11/11/18 04:32 Magnesium 1.70 mg/dL (1.7-2.3) 11/10/18 03:15 Urine Creatinine 121.5 mg/dL (0.1-20.0) H 11/11/18 23:15 Urine Sodium 71 mmol/L 11/11/18 23:15 Urine Total Protein 132 mg/dL (5-11.8) H 11/11/18 23:15 Medications & Allergies - Medications Allergies/Adverse Reactions: Allergies No Known Allergies Allergy (Verified 11/10/18 09:26) Home Medications: Home Medications Medication Instructions Recorded Confirmed Last Taken Type AtorvaSTATin [Lipitor] 80 mg PO HS 11/10/18 11/10/18 Unknown History Calcium Carbonate/Vitamin D3 1 tab PO DAILY 11/10/18 11/10/18 Unknown History [Calcium 500-Vit D3 600 Tablet] Carvedilol 1 tab PO BID 11/10/18 11/10/18 Unknown History Ferrous Sulfate [Iron] 325 mg PO 3XW 11/10/18 11/10/18 Unknown History Ondansetron [Zuplenz] 1 tab PO Q6HR PRN 11/10/18 11/10/18 Unknown History Sodium Bicarbonate 1 tab PO BID 11/10/18 11/10/18 Unknown History amLODIPine [Norvasc] 1 tab PO DAILY 11/10/18 11/10/18 Unknown History glyBURIDE [Glyburide] 1 tab PO DAILY 11/10/18 11/10/18 Unknown History hydrALAZINE [Apresoline TAB] 2 tab PO QID 11/10/18 11/10/18 Unknown History metFORMIN [Glucophage] 1 tab PO BID 11/10/18 11/10/18 Unknown History Active Medications: Generic Name Dose Route Start Last Admin Trade Name Freq PRN Reason Stop Dose Admin Acetaminophen 650 mg 11/10/18 09:11 Tylenol PO Q4H PRN Pain MILD(1-3)/Fever >100.5/PICKERING Amlodipine Besylate 10 mg 11/10/18 11:00 11/11/18 10:13 Norvasc PO 10 mg DAILY [facility] Administration Atorvastatin Calcium 80 mg 11/10/18 22:00 11/11/18 23:08 Lipitor PO 80 mg HS [facility] Administration Calcium/Vitamin D 1 each 11/10/18 11:05 11/12/18 09:21 Oysco D 500 Mg-200 Unit PO 1 each DAILY [facility] Administration Carvedilol 25 mg 11/10/18 11:00 11/11/18 23:09 Coreg PO 25 mg BID [facility] Administration Dextrose 50 ml 11/10/18 09:11 D50w (25gm) Syringe IV PRN PRN Hypoglycemia Enoxaparin Sodium 30 mg 11/10/18 11:00 11/12/18 09:21 Lovenox SUB-Q 30 mg QDAY [facility] Administration Ferrous Sulfate 325 mg 11/12/18 10:00 11/12/18 09:21 Feosol PO 325 mg MoWeFr [facility] Administration Furosemide 40 mg 11/11/18 10:00 11/12/18 09:21 Lasix IV 40 mg QDAY [facility] Administration Hydralazine HCl 25 mg 11/10/18 11:00 11/11/18 23:09 Apresoline PO 25 mg QID [facility] Administration Levofloxacin/Dextrose 750 mg in 150 mls @ 100 mls/hr 11/12/18 10:00 11/12/18 09:21 Levaquin 750mg/150ml IV 100 mls/hr Q48HR [facility] Administration Protocol Insulin Human Regular 0 units 11/10/18 11:30 11/12/18 08:43 Humulin R SUB-Q Not Given ACHS [facility] Protocol Ondansetron HCl 4 mg 11/10/18 09:11 11/11/18 17:56 Zofran IV 4 mg Q8H PRN Administration Nausea And Vomiting Potassium Chloride 10 meq 11/10/18 11:00 11/12/18 09:21 K-Dur PO 10 meq QDAY [facility] Administration Sodium Bicarbonate 650 mg 11/10/18 11:00 11/12/18 09:21 Sodium Bicarbonate PO 650 mg BID [facility] Administration Sodium Chloride 10 ml 11/10/18 11:00 11/11/18 23:10 Sodium Chloride Flush Syringe 10 Ml IV 10 ml BID [facility] Administration Sodium Chloride 10 ml 11/10/18 09:11 Sodium Chloride Flush Syringe 10 Ml IV PRN PRN LINE FLUSH
--- NOTE | 2018-11-12 09:59 | Progress Note ---
Assessment and Plan Assessment and plan: Acute hypoxic respiratory failure. Etiology is multifactorial secondary to CHF exacerbation, VENKATESH/OHS +/-healthcare associated pneumonia and mild pulmonary hypertension. Patient did have recent hospitalization and chest x-ray reveals bilateral infiltrates. Continue O2 for supportive care and BiPAP as clinically indicated. Acute diastolic heart failure. Echocardiogram reveals global left ventricular systolic function normal with EF of 55-60%. Patient has mild concentric left ventricular hypertrophy. Right ventricular systolic pressures 40 mmHg. Obtain old records. Cardiology following. Mild pulmonary hypertension. Acute on chronic renal failure. Nephrology consultation pending. ? Healthcare associated pneumonia. Patient with recent hospitalization and bilateral infiltrates. Continue Levaquin. Diabetes mellitus type 2. Continue to hold Glucophage and glipizide given the renal insufficiency. Sliding-scale regular insulin. Hemoglobin A1c 6.9. Hypertension. Continue antihypertensive medications. Good control Anemia. I suspect this is likely anemia of chronic kidney disease. Transfuse for hemoglobin less than 7. Check iron studies. Hyperlipidemia. Continue Lipitor. OHS/VENKATESH. Patient will likely need outpatient sleep study. History Interval history: No new issues overnight. Hospitalist Physical - Constitutional Vitals: Temp Pulse Resp BP Pulse Ox 98.8 F 72 18 113/51 93 11/12/18 05:20 11/12/18 09:26 11/12/18 05:20 11/12/18 09:26 11/12/18 05:20 General appearance: Present: no acute distress - EENT Eyes: Present: PERRL, EOM intact ENT: hearing intact, clear oral mucosa, dentition normal - Neck Neck: Present: supple, normal ROM - Respiratory Respiratory effort: normal Respiratory: bilateral: CTA - Cardiovascular Rhythm: regular Heart Sounds: Present: S1 & S2. Absent: gallop, rub - Extremities Extremities: no ischemia, No edema, Full ROM - Abdominal General gastrointestinal: soft, non-tender, non-distended, normal bowel sounds - Integumentary Integumentary: Present: clear, warm, dry - Neurologic Neurologic: CNII-XII intact, moves all extremities Results - Labs CBC & Chem 7: 11/11/18 04:32 11/11/18 04:32 Labs: Laboratory Last Values WBC 6.9 K/mm3 (4.5-11.0) 11/11/18 04:32 RBC 2.56 M/mm3 (3.65-5.03) L 11/11/18 04:32 Hgb 7.7 gm/dl (10.1-14.3) L 11/11/18 04:32 Hct 22.5 % (30.3-42.9) L 11/11/18 04:32 MCV 88 fl (79-97) 11/11/18 04:32 MCH 30 pg (28-32) 11/11/18 04:32 MCHC 34 % (30-34) 11/11/18 04:32 RDW 13.4 % (13.2-15.2) 11/11/18 04:32 Plt Count 210 K/mm3 (140-440) 11/11/18 04:32 Lymph % (Auto) 9.0 % (13.4-35.0) L 11/11/18 04:32 [place] % (Auto) 7.7 % (0.0-7.3) H 11/11/18 04:32 Eos % (Auto) 1.6 % (0.0-4.3) 11/11/18 04:32 Baso % (Auto) 0.3 % (0.0-1.8) 11/11/18 04:32 Lymph # 0.6 K/mm3 (1.2-5.4) L 11/11/18 04:32 [place] # 0.5 K/mm3 (0.0-0.8) 11/11/18 04:32 Eos # 0.1 K/mm3 (0.0-0.4) 11/11/18 04:32 Baso # 0.0 K/mm3 (0.0-0.1) 11/11/18 04:32 Seg Neutrophils % 81.4 % (40.0-70.0) H 11/11/18 04:32 Seg Neutrophils # 5.6 K/mm3 (1.8-7.7) 11/11/18 04:32 Percent Retic 2.16 % (0.78-2.58) 11/11/18 10:58 PT 15.4 Sec. (12.2-14.9) H 11/10/18 03:15 INR 1.15 (0.87-1.13) H 11/10/18 03:15 Sodium 138 mmol/L (137-145) 11/11/18 04:32 Potassium 4.5 mmol/L (3.6-5.0) 11/11/18 04:32 Chloride 103.9 mmol/L (98-107) 11/11/18 04:32 Carbon Dioxide 17 mmol/L (22-30) L 11/11/18 04:32 Anion Gap 22 mmol/L 11/11/18 04:32 BUN 46 mg/dL (7-17) H 11/11/18 04:32 Creatinine 3.7 mg/dL (0.7-1.2) H 11/11/18 04:32 Estimated GFR 15 ml/min 11/11/18 04:32 BUN/Creatinine Ratio 12 % 11/11/18 04:32 Glucose 97 mg/dL (65-100) 11/11/18 04:32 POC Glucose 129 (70-105) H 11/11/18 21:57 Hemoglobin A1c 6.9 % (4-6) H 11/10/18 10:41 Osmolality 303 Mosm/kg 11/11/18 10:58 Lactic Acid 0.60 mmol/L (0.7-2.0) L 11/10/18 04:30 Uric Acid 10.0 mg/dL (3.5-7.6) H 11/11/18 10:58 Calcium 8.7 mg/dL (8.4-10.2) 11/11/18 04:32 Magnesium 1.70 mg/dL (1.7-2.3) 11/10/18 03:15 Iron 18 ug/dL (37-170) L 11/11/18 10:58 TIBC 157 mcg/dL (250-450) L 11/11/18 10:58 NT-Pro-B Natriuret Pep 5293 pg/mL (0-900) H 11/10/18 04:30 Vitamin B12 604.7 pg/mL (211-911) 11/11/18 10:58 Folate 8.35 ng/mL (7.3-26.0) 11/11/18 10:58 TSH 2.950 mlU/mL (0.270-4.200) 11/10/18 03:15 Urine Color Yellow (Yellow) 11/11/18 23:15 Urine Turbidity Clear (Clear) 11/11/18 23:15 Urine pH 5.0 (5.0-7.0) 11/11/18 23:15 Ur Specific [place] 1.010 (1.003-1.030) 11/11/18 23:15 Urine Protein 100 mg/dl mg/dL (Negative) 11/11/18 23:15 Urine Glucose (UA) Neg mg/dL (Negative) 11/11/18 23:15 Urine Ketones Neg mg/dL (Negative) 11/11/18 23:15 Urine Blood Neg (Negative) 11/11/18 23:15 Urine Nitrite Neg (Negative) 11/11/18 23:15 Urine Bilirubin Neg (Negative) 11/11/18 23:15 Urine Urobilinogen < 2.0 mg/dL (<2.0) 11/11/18 23:15 Ur Leukocyte Esterase Neg (Negative) 11/11/18 23:15 Urine WBC (Auto) 3.0 /HPF (0.0-6.0) 11/11/18 23:15 Urine RBC (Auto) 1.0 /HPF (0.0-6.0) 11/11/18 23:15 U Epithel Cells (Auto) 1.0 /HPF (0-13.0) 11/11/18 23:15 Urine Mucus Few /HPF 11/11/18 23:15 Urine Creatinine 121.5 mg/dL (0.1-20.0) H 11/11/18 23:15 Urine Sodium 71 mmol/L 11/11/18 23:15 Urine Total Protein 132 mg/dL (5-11.8) H 11/11/18 23:15
--- NOTE | 2018-11-12 11:12 | Progress Note ---
Assessment and Plan Shortness of breath cxr suggests pneumonia Volume overload Renal failure Anemia Hypertension Diabetes An echocardiogram reveal a normal LVEF 55-60%. Subjective Date of service: 11/12/18 Interval history: Patient reports her breathing is better. She denies chest pain. Objective Vital Signs Temp Pulse Resp BP BP Pulse Ox 11/12/18 09:26 72 113/51 11/12/18 05:20 98.8 F 73 18 114/49 93 11/11/18 23:20 98.2 F 80 20 140/63 93 11/11/18 23:09 79 154/75 11/11/18 21:55 95 11/11/18 17:27 98.7 F 75 22 130/61 92 11/11/18 11:59 98.6 F 82 20 146/74 93 - Physical Examination General: No Apparent Distress HEENT: Positive: PERRL Cardiac: Positive: Reg Rate and Rhythm Lungs: Positive: Decreased Breath Sounds Neuro: Positive: Grossly Intact Extremities: Present: edema
[2018-11-12] MEDS ORDERED: PROCRIT SUB-Q ONE (11:30)
[2018-11-12] MEDS: APRESOLINE PO SCH ×3 (14:10→22:55)
[2018-11-12] MEDS: COREG PO SCH ×2 (14:11→22:55)
[2018-11-12] MEDS: SODIUM CHLORIDE FLUSH SYRINGE 10 ML IV SCH ×2 (14:12→22:53)
[2018-11-13] MEDS: HumuLIN R SUB-Q SCH ×5 (05:35→23:03)
--- NOTE | 2018-11-13 06:24 | Ultrasound Report ---
PROCEDURE: US RENAL BILAT TECHNIQUE: Routine imaging was obtained of the kidneys and bladder. HISTORY: renal failure COMPARISONS: None FINDINGS: The right kidney measures 10.4 x 4.1 x 4.5 cm. The cortical thickness is 0.9 cm. The echotexture of t he cortex is slightly increased. There is no evidence of hydronephrosis. The left kidney measures 10.3 x 3.8 x 4.2 cm. The cortical thickness is 0.9 cm. The cortical echotext ure is slightly increased. There is no evidence of hydronephrosis. The bladder is unremarkable. IMPRESSION: Slightly increased echotexture of the renal cortices bilaterally. This is consistent with renal medic al disease. No evidence of hydronephrosis.. This document is electronically signed by Jaison Hickman MD., November 13 2018 06:22:07 AM ET
[2018-11-13 07:32] LABS: Basophils % (Auto) 0.5 % (0.0-1.8); Eosinophils # (Auto) 0.2 K/mm3 (0.0-0.4); Eosinophils % (Auto) 4.2 % (0.0-4.3); Hematocrit 23.6 % (30.3-42.9); Hemoglobin 7.8 gm/dl (10.1-14.3); Lymphocytes # (Auto) 0.8 K/mm3 (1.2-5.4); Mean Corpuscular HGB Conc 33 % (30-34); Mean Corpuscular Volume 88 fl (79-97); Monocytes # (Auto) 0.5 K/mm3 (0.0-0.8); Monocytes % (Auto) 9.3 % (0.0-7.3); Platelet Count 247 K/mm3 (140-440); Red Blood Count 2.69 M/mm3 (3.65-5.03); Red Cell Distribution Width 13.6 % (13.2-15.2)
[2018-11-13 07:46] LABS: Calcium 8.9 mg/dL (8.4-10.2)
--- NOTE | 2018-11-13 09:21 | Progress Note ---
Subjective Interval history: Patient was seen today for follow-up on multiple renal related issues Events of 24 hours were noted, reviewed interdisciplinary Notes old records currently not available She is slowly improving Vitals labs intake output medications were reviewed Past medical history: Reviewed Allergies: Reviewed Family history/social history: Reviewed Physical examination Vitals: Reviewed HEENT: Oral mucosa moist, no pallor or icterus Neck: Supple without any thyromegaly no evidence of any JVD Chest: Essentially clear to auscultation anteriorly no crackles or wheezes Heart: Regular rate and rhythm S1 and S2 heard no S3-S4 Abdomen: Soft nontender, no organomegaly no dullness in the flank Extremity: Dry skin less than 1-2+ peripheral edema, pitting no peripheral discoloration or cyanosis Dermatology: No petechial rashes Psychiatric: No evidence of vegetation progression Neurological: My assessment and plan are as follows Advanced renal failure likely stage IV chronic kidney disease in a patient who has been told to have chronic kidney disease baseline creatinine is currently unclear to me, will do a 24-hour urine for protein creatinine as well as creatinine clearance in the outpatient setting protein creatinine ratio is 132/121 which is slightly over 1 g was likely resulting from hypertensive and diabetic nephropathy in addition to weight and diet and eating habit, Increase Lasix to 80 mg once a day, she is not a suitable candidate for KATE inhibitor or angiotensin receptor arnoldo Renal prognosis appears to be guarded to poor she is high risk for progression to end-stage renal disease this was clearly discussed with the patient will follow-up on the pending labs For renal ultrasonogram shows echogenic kidneys bilaterally which is a poor prognostic indicator As far as her hypertension and volume is concerned blood pressure goal should be 130/80, patient must comply with fluid sodium restriction judicious diuretic since Her iron saturation is only 18% Metabolic acidosis continue with sodium bicarbonate tablet Received erythropoietin, periodically will need hematology evaluation, IV iron and erythropoietin Adequately counseled and educated regarding all the renal related issues Advised to make an appointment in the office for follow-up upon discharge We'll continue to follow and make recommendation from renal standpoint Objective - Vital Signs Vital signs: Vital Signs - 12hr 11/12/18 11/12/18 11/13/18 22:48 22:55 00:27 Temperature 99.6 F Pulse Rate 77 77 79 Respiratory 18 20 Rate Blood Pressure 136/58 136/58 155/78 O2 Sat by Pulse 90 85 Oximetry 11/13/18 06:17 Temperature 98.0 F Pulse Rate 80 Respiratory 20 Rate Blood Pressure 167/82 O2 Sat by Pulse 88 Oximetry - Lab 11/13/18 06:24 11/13/18 06:24 Most recent lab results Calcium 8.9 mg/dL (8.4-10.2) 11/13/18 06:24 Magnesium 1.70 mg/dL (1.7-2.3) 11/10/18 03:15 Urine Creatinine 121.5 mg/dL (0.1-20.0) H 11/11/18 23:15 Urine Sodium 71 mmol/L 11/11/18 23:15 Urine Total Protein 132 mg/dL (5-11.8) H 11/11/18 23:15 Medications & Allergies - Medications Allergies/Adverse Reactions: Allergies No Known Allergies Allergy (Verified 11/10/18 09:26) Home Medications: Home Medications Medication Instructions Recorded Confirmed Last Taken Type AtorvaSTATin [Lipitor] 80 mg PO HS 11/10/18 11/10/18 Unknown History Calcium Carbonate/Vitamin D3 1 tab PO DAILY 11/10/18 11/10/18 Unknown History [Calcium 500-Vit D3 600 Tablet] Carvedilol 1 tab PO BID 11/10/18 11/10/18 Unknown History Ferrous Sulfate [Iron] 325 mg PO 3XW 11/10/18 11/10/18 Unknown History Ondansetron [Zuplenz] 1 tab PO Q6HR PRN 11/10/18 11/10/18 Unknown History Sodium Bicarbonate 1 tab PO BID 11/10/18 11/10/18 Unknown History amLODIPine [Norvasc] 1 tab PO DAILY 11/10/18 11/10/18 Unknown History glyBURIDE [Glyburide] 1 tab PO DAILY 11/10/18 11/10/18 Unknown History hydrALAZINE [Apresoline TAB] 2 tab PO QID 11/10/18 11/10/18 Unknown History metFORMIN [Glucophage] 1 tab PO BID 11/10/18 11/10/18 Unknown History Active Medications: Generic Name Dose Route Start Last Admin Trade Name Freq PRN Reason Stop Dose Admin Acetaminophen 650 mg 11/10/18 09:11 Tylenol PO Q4H PRN Pain MILD(1-3)/Fever >100.5/PICKERING Amlodipine Besylate 10 mg 11/10/18 11:00 11/11/18 10:13 Norvasc PO 10 mg DAILY [facility] Administration Atorvastatin Calcium 80 mg 11/10/18 22:00 11/12/18 22:50 Lipitor PO 80 mg HS [facility] Administration Calcium/Vitamin D 1 each 11/10/18 11:05 11/12/18 09:21 Oysco D 500 Mg-200 Unit PO 1 each DAILY [facility] Administration Carvedilol 25 mg 11/10/18 11:00 11/12/18 22:55 Coreg PO Not Given BID [facility] Dextrose 50 ml 11/10/18 09:11 D50w (25gm) Syringe IV PRN PRN Hypoglycemia Enoxaparin Sodium 30 mg 11/10/18 11:00 11/12/18 09:21 Lovenox SUB-Q 30 mg QDAY [facility] Administration Ferrous Sulfate 325 mg 11/12/18 10:00 11/12/18 09:21 Feosol PO 325 mg MoWeFr [facility] Administration Furosemide 40 mg 11/11/18 10:00 11/12/18 09:21 Lasix IV 40 mg QDAY [facility] Administration Hydralazine HCl 25 mg 11/10/18 11:00 11/12/18 22:55 Apresoline PO Not Given QID [facility] Levofloxacin/Dextrose 750 mg in 150 mls @ 100 mls/hr 11/12/18 10:00 11/12/18 09:21 Levaquin 750mg/150ml IV 100 mls/hr Q48HR [facility] Administration Protocol Insulin Human Regular 0 units 11/10/18 11:30 11/13/18 08:26 Humulin R SUB-Q Not Given ACHS [facility] Protocol Ondansetron HCl 4 mg 11/10/18 09:11 11/11/18 17:56 Zofran IV 4 mg Q8H PRN Administration Nausea And Vomiting Potassium Chloride 10 meq 11/10/18 11:00 11/12/18 09:21 K-Dur PO 10 meq QDAY [facility] Administration Sodium Bicarbonate 1,950 mg 11/12/18 09:57 11/12/18 22:50 Sodium Bicarbonate PO 1,950 mg BID [facility] Administration Sodium Chloride 10 ml 11/10/18 11:00 11/12/18 22:53 Sodium Chloride Flush Syringe 10 Ml IV 10 ml BID [facility] Administration Sodium Chloride 10 ml 11/10/18 09:11 Sodium Chloride Flush Syringe 10 Ml IV PRN PRN LINE FLUSH
--- NOTE | 2018-11-13 09:41 | Progress Note ---
Assessment and Plan Shortness of breath, multifactorial Severe pulmonary edema Chronic Renal failure Severe Anemia Hypertension Diabetes An echocardiogram reveal a well-preserved left ventricle systolic function, EF 55-60%. Recommendations: We'll defer to internal medicine, nephrology and gastroenterology for further evaluation of renal disease and anemia. Further cardiac evaluation would depend on clinical course, predischarge Persantine thallium when other clinical issues are resolved. Subjective Date of service: 11/13/18 Interval history: Patient reports her breathing is slowly improving. Objective Vital Signs Temp Pulse Resp BP Pulse Ox 11/13/18 06:17 98.0 F 80 20 167/82 88 11/13/18 00:27 99.6 F 79 20 155/78 85 11/12/18 22:55 77 136/58 11/12/18 22:48 77 18 136/58 90 11/12/18 20:43 92 11/12/18 17:53 98.5 F 77 18 152/73 91 11/12/18 14:11 76 124/53 11/12/18 14:10 76 124/53 11/12/18 12:51 97.9 F 73 16 144/65 91 11/12/18 10:00 93 - Physical Examination General: No Apparent Distress HEENT: Positive: PERRL Neck: Positive: trachea midline Cardiac: Positive: Reg Rate and Rhythm Lungs: Positive: Decreased Breath Sounds Neuro: Positive: Grossly Intact Extremities: Present: edema - Labs and Meds CBC 11/13/18 Range/Units 06:24 WBC 5.3 (4.5-11.0) K/mm3 RBC 2.69 L (3.65-5.03) M/mm3 Hgb 7.8 L (10.1-14.3) gm/dl Hct 23.6 L (30.3-42.9) % Plt Count 247 (140-440) K/mm3 Lymph # 0.8 L (1.2-5.4) K/mm3 [place] # 0.5 (0.0-0.8) K/mm3 Eos # 0.2 (0.0-0.4) K/mm3 Baso # 0.0 (0.0-0.1) K/mm3 Comprehensive Metabolic Panel 11/13/18 Range/Units 06:24 Sodium 139 (137-145) mmol/L Potassium 4.9 (3.6-5.0) mmol/L Chloride 105.2 (98-107) mmol/L Carbon Dioxide 21 L (22-30) mmol/L BUN 50 H (7-17) mg/dL Creatinine 4.1 H (0.7-1.2) mg/dL Glucose 88 (65-100) mg/dL Calcium 8.9 (8.4-10.2) mg/dL
[2018-11-13] MEDS: LOVENOX SUB-Q SCH (10:20)
[2018-11-13] MEDS: LASIX IV SCH (10:20)
[2018-11-13] MEDS: K-DUR PO SCH (10:20)
[2018-11-13] MEDS: SODIUM BICARBONATE PO SCH ×2 (10:20→22:24)
[2018-11-13] MEDS: OYSCO D 500 MG-200 UNIT PO SCH (10:20)
[2018-11-13] MEDS: SODIUM CHLORIDE FLUSH SYRINGE 10 ML IV SCH ×2 (12:13→23:06)
[2018-11-13] MEDS: APRESOLINE PO SCH ×5 (13:02→22:20)
[2018-11-13] MEDS: COREG PO SCH ×2 (13:02→22:24)
[2018-11-13] MEDS: NORVASC PO SCH ×2 (13:02→13:03)
--- NOTE | 2018-11-13 15:53 | Progress Note ---
Assessment and Plan Assessment and plan: Patient is 63 yo woman with a history of type 2 DM, CKD 4, dyslipidemia, hypertension and chronic lymphedema who presented to [facility] ED with cough and sob. Pulse ox was onlye 88% on Room air Acute hypoxic respiratory failure. Etiology is multifactorial CHF exacerbation, VENKATESH/OHS +/-healthcare associated pneumonia and mild pulmonary hypertension. Patient did have recent hospitalization and chest x-ray reveals bilateral infiltrates. Acute diastolic heart failure. Echocardiogram EF of 55-60%. Patient has mild concentric left ventricular hypertrophy. Right ventricular systolic pressures 40 mmHg. Cardiology following. Acute on chronic renal failure. Nephrology consultation pending. Suspected Healthcare associated pneumonia. Patient with recent hospitalization and bilateral infiltrates. Continue Levaquin. Diabetes mellitus type 2. Continue to hold Glucophage and glipizide given the renal insufficiency. Sliding-scale regular insulin. Hemoglobin A1c 6.9. Hypertension. Continue antihypertensive medications. Good control AOCD I suspect this is likely anemia of chronic kidney disease. Transfuse for hemoglobin less than 7. Check iron studies. Hyperlipidemia. Continue Lipitor. OHS/VENKATESH. Patient will likely need outpatient sleep study. Disposition: continue inpatient care, d/c once renal clears and needs pre- discharge stress per Cardiology History Interval history: Patient was seen and examined. Follow-up on current diagnosis of ARF,CHF. Overnight uneventful. Patient denies any chest pain, shortness breath, na usea/vomiting or severe headaches. Imaging, nursing note, chart, labs and old chart reviewed. Discussed with patient. Hospitalist Physical - Physical exam Narrative exam: GEN: WDWN, NAD, Awake, Alert, Orientated x 3, bmi 31.5 HEENT: NCAT, EOMI, PERRL, OP Clear NECK: supple, no adenopathy, no thyromegaly, no JVD CVS/HEART: RRR, normal S1S2, pulses present bilaterally CHEST/LUNGS: diminished bs bilateral, Symmetrical chest expansion, good air entry bilaterally GI/Abdomen: soft, NTND, good bowel sounds, no guarding or rebound /Bladder: no suprapubic tenderness, no CVA or paraspinal tenderness EXT/Skin: leg edema, no obvious rash MSK: FROM x 4 Neuro: CN 2-12 grossly intact, no new focal deficits Psych: calm - Constitutional Vitals: Temp Pulse Resp BP Pulse Ox 98.4 F 83 20 172/79 93 11/13/18 12:16 11/13/18 12:16 11/13/18 12:16 11/13/18 12:16 11/13/18 12:16 General appearance: Present: no acute distress Results - Labs CBC & Chem 7: 11/13/18 06:24 03 06:24 Labs: Laboratory Last Values WBC 5.3 K/mm3 (4.5-11.0) 11/13/18 06:24 RBC 2.69 M/mm3 (3.65-5.03) L 11/13/18 06:24 Hgb 7.8 gm/dl (10.1-14.3) L 11/13/18 06:24 Hct 23.6 % (30.3-42.9) L 11/13/18 06:24 MCV 88 fl (79-97) 11/13/18 06:24 MCH 29 pg (28-32) 11/13/18 06:24 MCHC 33 % (30-34) 11/13/18 06:24 RDW 13.6 % (13.2-15.2) 11/13/18 06:24 Plt Count 247 K/mm3 (140-440) 11/13/18 06:24 Lymph % (Auto) 15.0 % (13.4-35.0) 11/13/18 06:24 [place] % (Auto) 9.3 % (0.0-7.3) H 11/13/18 06:24 Eos % (Auto) 4.2 % (0.0-4.3) 11/13/18 06:24 Baso % (Auto) 0.5 % (0.0-1.8) 11/13/18 06:24 Lymph # 0.8 K/mm3 (1.2-5.4) L 11/13/18 06:24 [place] # 0.5 K/mm3 (0.0-0.8) 11/13/18 06:24 Eos # 0.2 K/mm3 (0.0-0.4) 11/13/18 06:24 Baso # 0.0 K/mm3 (0.0-0.1) 11/13/18 06:24 Seg Neutrophils % 71.0 % (40.0-70.0) H 11/13/18 06:24 Seg Neutrophils # 3.8 K/mm3 (1.8-7.7) 11/13/18 06:24 Percent Retic 2.16 % (0.78-2.58) 11/11/18 10:58 PT 15.4 Sec. (12.2-14.9) H 11/10/18 03:15 INR 1.15 (0.87-1.13) H 11/10/18 03:15 Sodium 139 mmol/L (137-145) 11/13/18 06:24 Potassium 4.9 mmol/L (3.6-5.0) 11/13/18 06:24 Chloride 105.2 mmol/L (98-107) 11/13/18 06:24 Carbon Dioxide 21 mmol/L (22-30) L 11/13/18 06:24 Anion Gap 18 mmol/L 11/13/18 06:24 BUN 50 mg/dL (7-17) H 11/13/18 06:24 Creatinine 4.1 mg/dL (0.7-1.2) H 11/13/18 06:24 Estimated GFR 13 ml/min 11/13/18 06:24 BUN/Creatinine Ratio 12 % 11/13/18 06:24 Glucose 88 mg/dL (65-100) 11/13/18 06:24 POC Glucose 129 (70-105) H 11/11/18 21:57 Hemoglobin A1c 6.9 % (4-6) H 11/10/18 10:41 Osmolality 303 Mosm/kg 11/11/18 10:58 Lactic Acid 0.60 mmol/L (0.7-2.0) L 11/10/18 04:30 Uric Acid 10.0 mg/dL (3.5-7.6) H 11/11/18 10:58 Calcium 8.9 mg/dL (8.4-10.2) 11/13/18 06:24 Magnesium 1.70 mg/dL (1.7-2.3) 11/10/18 03:15 Iron 18 ug/dL (37-170) L 11/11/18 10:58 TIBC 157 mcg/dL (250-450) L 11/11/18 10:58 NT-Pro-B Natriuret Pep 5293 pg/mL (0-900) H 11/10/18 04:30 Vitamin B12 604.7 pg/mL (211-911) 11/11/18 10:58 Folate 8.35 ng/mL (7.3-26.0) 11/11/18 10:58 TSH 2.950 mlU/mL (0.270-4.200) 11/10/18 03:15 Urine Color Yellow (Yellow) 11/11/18 23:15 Urine Turbidity Clear (Clear) 11/11/18 23:15 Urine pH 5.0 (5.0-7.0) 11/11/18 23:15 Ur Specific [place] 1.010 (1.003-1.030) 11/11/18 23:15 Urine Protein 100 mg/dl mg/dL (Negative) 11/11/18 23:15 Urine Glucose (UA) Neg mg/dL (Negative) 11/11/18 23:15 Urine Ketones Neg mg/dL (Negative) 11/11/18 23:15 Urine Blood Neg (Negative) 11/11/18 23:15 Urine Nitrite Neg (Negative) 11/11/18 23:15 Urine Bilirubin Neg (Negative) 11/11/18 23:15 Urine Urobilinogen < 2.0 mg/dL (<2.0) 11/11/18 23:15 Ur Leukocyte Esterase Neg (Negative) 11/11/18 23:15 Urine WBC (Auto) 3.0 /HPF (0.0-6.0) 11/11/18 23:15 Urine RBC (Auto) 1.0 /HPF (0.0-6.0) 11/11/18 23:15 U Epithel Cells (Auto) 1.0 /HPF (0-13.0) 11/11/18 23:15 Urine Mucus Few /HPF 11/11/18 23:15 Urine Creatinine 121.5 mg/dL (0.1-20.0) H 11/11/18 23:15 Urine Sodium 71 mmol/L 11/11/18 23:15 Urine Total Protein 132 mg/dL (5-11.8) H 11/11/18 23:15
[2018-11-13] MEDS: ZOFRAN IV PRN (17:50)
[2018-11-14] MEDS: HumuLIN R SUB-Q SCH ×3 (08:27→18:22)
--- NOTE | 2018-11-14 08:39 | Event Note ---
Date: 11/14/18 [id number]
--- NOTE | 2018-11-14 09:30 | Progress Note ---
Subjective Interval history: Patient was seen today for follow-up on multiple renal related issues Events of 24 hours were noted, reviewed interdisciplinary Notes She has been seen by hematology IV iron has been ordered Vitals labs intake output medications were reviewed Past medical history: Reviewed Allergies: Reviewed Family history/social history: Reviewed Physical examination Vitals: Reviewed HEENT: Oral mucosa moist, no pallor or icterus Neck: Supple without any thyromegaly no evidence of any JVD Chest: Essentially clear to auscultation anteriorly no crackles or wheezes Heart: Regular rate and rhythm S1 and S2 heard no S3-S4 Abdomen: Soft nontender, no organomegaly no dullness in the flank Extremity: Dry skin less than 1+ peripheral edema, pitting no peripheral discoloration or cyanosis Dermatology: No petechial rashes Psychiatric: No evidence of vegetation progression Neurological: My assessment and plan are as follows Chronic kidney disease, patient will need follow-up labs Will follow-up on the pending lab including LAKESHA, immunofixation Hyperuricemia uric acid was 10 will need follow-up Renal ultrasonogram shows bilateral echogenic kidney in the setting of diabetes suggestive of advanced renal failure Iron deficiency anemia: Patient now seeing hematology Will need follow-up in the office upon discharge Renal prognosis very poor, patient educated high risk for progression to end- stage renal disease Ultimate below the comorbidities including congestive heart failure obstructive sleep apnea, diabetes, hypertension, left ventricular hypertrophy poor dietary compliance Metabolic acidosis continue to monitor bicarbonate level Diabetes mellitus type 2 long-standing more than 15 years duration current hemoglobin A1c is around 6.9 Hyponatremia, will need ongoing follow-up Adequately counseled and educated regarding all the renal related issues Advised to make an appointment in the office for follow-up upon discharge We'll continue to follow and make recommendation from renal standpoint Objective - Vital Signs Vital signs: Vital Signs - 12hr 11/13/18 11/13/18 11/13/18 22:00 22:20 22:24 Temperature Pulse Rate 82 82 Respiratory 18 Rate Blood Pressure 144/64 144/64 11/14/18 05:23 Temperature 99.2 F Pulse Rate Respiratory 16 Rate Blood Pressure 139/68 - Lab 11/13/18 06:24 11/13/18 06:24 Most recent lab results Calcium 8.9 mg/dL (8.4-10.2) 11/13/18 06:24 Magnesium 1.70 mg/dL (1.7-2.3) 11/10/18 03:15 Urine Creatinine 121.5 mg/dL (0.1-20.0) H 11/11/18 23:15 Urine Sodium 71 mmol/L 11/11/18 23:15 Urine Total Protein 132 mg/dL (5-11.8) H 11/11/18 23:15 Medications & Allergies - Medications Allergies/Adverse Reactions: Allergies No Known Allergies Allergy (Verified 11/10/18 09:26) Home Medications: Home Medications Medication Instructions Recorded Confirmed Last Taken Type AtorvaSTATin [Lipitor] 80 mg PO HS 11/10/18 11/10/18 Unknown History Calcium Carbonate/Vitamin D3 1 tab PO DAILY 11/10/18 11/10/18 Unknown History [Calcium 500-Vit D3 600 Tablet] Carvedilol 1 tab PO BID 11/10/18 11/10/18 Unknown History Ferrous Sulfate [Iron] 325 mg PO 3XW 11/10/18 11/10/18 Unknown History Ondansetron [Zuplenz] 1 tab PO Q6HR PRN 11/10/18 11/10/18 Unknown History Sodium Bicarbonate 1 tab PO BID 11/10/18 11/10/18 Unknown History amLODIPine [Norvasc] 1 tab PO DAILY 11/10/18 11/10/18 Unknown History glyBURIDE [Glyburide] 1 tab PO DAILY 11/10/18 11/10/18 Unknown History hydrALAZINE [Apresoline TAB] 2 tab PO QID 11/10/18 11/10/18 Unknown History metFORMIN [Glucophage] 1 tab PO BID 11/10/18 11/10/18 Unknown History Active Medications: Generic Name Dose Route Start Last Admin Trade Name Freq PRN Reason Stop Dose Admin Acetaminophen 650 mg 11/10/18 09:11 Tylenol PO Q4H PRN Pain MILD(1-3)/Fever >100.5/PICKERING Amlodipine Besylate 10 mg 11/10/18 11:00 11/13/18 13:03 Norvasc PO 10 mg DAILY [facility] Administration Atorvastatin Calcium 80 mg 11/10/18 22:00 11/13/18 22:24 Lipitor PO 80 mg HS [facility] Administration Calcium/Vitamin D 1 each 11/10/18 11:05 11/13/18 10:20 Oysco D 500 Mg-200 Unit PO 1 each DAILY [facility] Administration Carvedilol 25 mg 11/10/18 11:00 11/13/18 22:24 Coreg PO Not Given BID [facility] Dextrose 50 ml 11/10/18 09:11 D50w (25gm) Syringe IV PRN PRN Hypoglycemia Enoxaparin Sodium 30 mg 11/10/18 11:00 11/13/18 10:20 Lovenox SUB-Q 30 mg QDAY [facility] Administration Ferrous Sulfate 325 mg 11/12/18 10:00 11/12/18 09:21 Feosol PO 325 mg MoWeFr [facility] Administration Furosemide 80 mg 11/13/18 09:22 11/13/18 10:20 Lasix IV 80 mg QDAY [facility] Administration Hydralazine HCl 25 mg 11/10/18 11:00 11/13/18 22:20 Apresoline PO Not Given QID [facility] Levofloxacin/Dextrose 750 mg in 150 mls @ 100 mls/hr 11/12/18 10:00 11/12/18 09:21 Levaquin 750mg/150ml IV 100 mls/hr Q48HR [facility] Administration Protocol Ferric Sodium Gluconate 110 mls @ 100 mls/hr 11/14/18 10:00 Complex 125 mg/ Sodium IV 11/14/18 11:05 Chloride ONCE ONE Insulin Human Regular 0 units 11/10/18 11:30 11/14/18 08:27 Humulin R SUB-Q Not Given ACHS [facility] Protocol Ondansetron HCl 4 mg 11/10/18 09:11 11/13/18 17:50 Zofran IV 4 mg Q8H PRN Administration Nausea And Vomiting Potassium Chloride 10 meq 11/10/18 11:00 11/13/18 10:20 K-Dur PO 10 meq QDAY [facility] Administration Sodium Bicarbonate 1,950 mg 11/12/18 09:57 11/13/18 22:24 Sodium Bicarbonate PO 1,300 mg BID [facility] Administration Sodium Chloride 10 ml 11/10/18 11:00 11/13/18 23:06 Sodium Chloride Flush Syringe 10 Ml IV 10 ml BID [facility] Administration Sodium Chloride 10 ml 11/10/18 09:11 Sodium Chloride Flush Syringe 10 Ml IV PRN PRN LINE FLUSH
[2018-11-14] MEDS: LEVAQUIN 750MG/150ML 750 MG/150 ML BAG IV SCH (10:00)
[2018-11-14] MEDS ORDERED: FERRLECIT 125 MG in NACL 0.9% 100 ML IV ONE (10:00)
[2018-11-14] MEDS: K-DUR PO SCH (10:00)
--- NOTE | 2018-11-14 10:13 | Progress Note ---
Assessment and Plan Shortness of breath, multifactorial Severe pulmonary edema Chronic Renal failure Severe Anemia Hypertension Diabetes An echocardiogram reveal a well-preserved left ventricle systolic function, EF 55-60%. Recommend: Predischarge Persantine thallium. We will plan for this tomorrow. Subjective Date of service: 11/14/18 Interval history: Patient reports her breathing is slowly improving. She denies chest pain. No morning labs drawn. Objective Vital Signs Temp Pulse Resp BP Pulse Ox 11/14/18 09:36 97 11/14/18 05:23 99.2 F 16 139/68 11/13/18 22:24 82 144/64 11/13/18 22:20 82 144/64 11/13/18 22:00 18 11/13/18 21:21 98.7 F 80 16 144/64 95 11/13/18 19:42 96 11/13/18 18:39 98.8 F 11/13/18 18:38 81 18 147/64 94 11/13/18 16:26 136/53 11/13/18 16:25 76 136/53 11/13/18 12:16 98.4 F 83 20 172/79 93 11/13/18 10:25 165/71 - Physical Examination General: No Apparent Distress HEENT: Positive: PERRL Neck: Positive: trachea midline Cardiac: Positive: Reg Rate and Rhythm Lungs: Positive: Decreased Breath Sounds Neuro: Positive: Grossly Intact Extremities: Present: edema
[2018-11-14] MEDS: LOVENOX SUB-Q SCH (10:38)
[2018-11-14] MEDS: OYSCO D 500 MG-200 UNIT PO SCH (10:39)
[2018-11-14] MEDS: LASIX IV SCH (10:40)
[2018-11-14] MEDS: NORVASC PO SCH (12:38)
[2018-11-14] MEDS: APRESOLINE PO SCH ×3 (12:39→19:00)
[2018-11-14] MEDS: COREG PO SCH (12:39)
[2018-11-14] MEDS: FEOSOL PO SCH (12:51)
[2018-11-14] MEDS: SODIUM BICARBONATE PO SCH ×2 (12:52→21:53)
[2018-11-14] MEDS: SODIUM CHLORIDE FLUSH SYRINGE 10 ML IV SCH ×2 (12:53→23:00)
--- NOTE | 2018-11-14 16:41 | Progress Note ---
Assessment and Plan Assessment and plan: Patient is 63 yo woman with a history of type 2 DM, CKD 4, dyslipidemia, hypertension and chronic lymphedema who presented to [facility] ED with cough and sob. Pulse ox was onlye 88% on Room air Acute hypoxic respiratory failure. Etiology is multifactorial CHF exacerbation, VENKATESH/OHS +/-healthcare associated pneumonia and mild pulmonary hypertension. Patient did have recent hospitalization and chest x-ray reveals bilateral infiltrates. Acute diastolic heart failure. Echocardiogram EF of 55-60%. Patient has mild concentric left ventricular hypertrophy. Right ventricular systolic pressures 40 mmHg. Cardiology following. Acute on chronic renal failure. Nephrology consultation pending. Suspected Healthcare associated pneumonia. Patient with recent hospitalization and bilateral infiltrates. Continue Levaquin. Diabetes mellitus type 2. Continue to hold Glucophage and glipizide given the renal insufficiency. Sliding-scale regular insulin. Hemoglobin A1c 6.9. Hypertension. Continue antihypertensive medications. Good control AOCD I suspect this is likely anemia of chronic kidney disease. Transfuse for hemoglobin less than 7. Check iron studies. Hyperlipidemia. Continue Lipitor. OHS/VENKATESH. Patient will likely need outpatient sleep study. Disposition: continue inpatient care, d/c once renal clears and needs pre- discharge stress per Cardiology stress test tomorrow and then possible d/c History Interval history: Patient was seen and examined. Follow-up on current diagnosis of ARF,CHF. Overnight uneventful. Patient denies any chest pain, shortness breath, nausea/vomiting or severe headaches. Imaging, nursing note, chart, labs and old chart reviewed. Discussed with patient. Hospitalist Physical - Physical exam Narrative exam: GEN: WDWN, NAD, Awake, Alert, Orientated x 3, bmi 31.5 HEENT: NCAT, EOMI, PERRL, OP Clear NECK: supple, no adenopathy, no thyromegaly, no JVD CVS/HEART: RRR, normal S1S2, pulses present bilaterally CHEST/LUNGS: diminished bs bilateral, Symmetrical chest expansion, good air entry bilaterally GI/Abdomen: soft, NTND, good bowel sounds, no guarding or rebound /Bladder: no suprapubic tenderness, no CVA or paraspinal tenderness EXT/Skin: leg edema, no obvious rash MSK: FROM x 4 Neuro: CN 2-12 grossly intact, no new focal deficits Psych: calm - Constitutional Vitals: Temp Pulse Resp BP Pulse Ox 99.3 F 79 20 182/82 96 11/14/18 12:23 11/14/18 12:23 11/14/18 12:23 11/14/18 12:38 11/14/18 12:23 General appearance: Present: no acute distress Results - Labs CBC & Chem 7: 11/13/18 06:24 11/13/18 06:24 Labs: Laboratory Last Values WBC 5.3 K/mm3 (4.5-11.0) 11/13/18 06:24 RBC 2.69 M/mm3 (3.65-5.03) L 11/13/18 06:24 Hgb 7.8 gm/dl (10.1-14.3) L 11/13/18 06:24 Hct 23.6 % (30.3-42.9) L 11/13/18 06:24 MCV 88 fl (79-97) 11/13/18 06:24 MCH 29 pg (28-32) 11/13/18 06:24 MCHC 33 % (30-34) 11/13/18 06:24 RDW 13.6 % (13.2-15.2) 11/13/18 06:24 Plt Count 247 K/mm3 (140-440) 11/13/18 06:24 Lymph % (Auto) 15.0 % (13.4-35.0) 11/13/18 06:24 Preble % (Auto) 9.3 % (0.0-7.3) H 11/13/18 06:24 Eos % (Auto) 4.2 % (0.0-4.3) 11/13/18 06:24 Baso % (Auto) 0.5 % (0.0-1.8) 11/13/18 06:24 Lymph # 0.8 K/mm3 (1.2-5.4) L 11/13/18 06:24 Preble # 0.5 K/mm3 (0.0-0.8) 11/13/18 06:24 Eos # 0.2 K/mm3 (0.0-0.4) 11/13/18 06:24 Baso # 0.0 K/mm3 (0.0-0.1) 11/13/18 06:24 Seg Neutrophils % 71.0 % (40.0-70.0) H 11/13/18 06:24 Seg Neutrophils # 3.8 K/mm3 (1.8-7.7) 11/13/18 06:24 Percent Retic 2.16 % (0.78-2.58) 11/11/18 10:58 PT 15.4 Sec. (12.2-14.9) H 11/10/18 03:15 INR 1.15 (0.87-1.13) H 11/10/18 03:15 Sodium 139 mmol/L (137-145) 11/13/18 06:24 Potassium 4.9 mmol/L (3.6-5.0) 11/13/18 06:24 Chloride 105.2 mmol/L (98-107) 11/13/18 06:24 Carbon Dioxide 21 mmol/L (22-30) L 11/13/18 06:24 Anion Gap 18 mmol/L 11/13/18 06:24 BUN 50 mg/dL (7-17) H 11/13/18 06:24 Creatinine 4.1 mg/dL (0.7-1.2) H 11/13/18 06:24 Estimated GFR 13 ml/min 11/13/18 06:24 BUN/Creatinine Ratio 12 % 11/13/18 06:24 Glucose 88 mg/dL (65-100) 11/13/18 06:24 POC Glucose 129 (70-105) H 11/11/18 21:57 Hemoglobin A1c 6.9 % (4-6) H 11/10/18 10:41 Osmolality 303 Mosm/kg 11/11/18 10:58 Lactic Acid 0.60 mmol/L (0.7-2.0) L 11/10/18 04:30 Uric Acid 10.0 mg/dL (3.5-7.6) H 11/11/18 10:58 Calcium 8.9 mg/dL (8.4-10.2) 11/13/18 06:24 Magnesium 1.70 mg/dL (1.7-2.3) 11/10/18 03:15 Iron 18 ug/dL (37-170) L 11/11/18 10:58 TIBC 157 mcg/dL (250-450) L 11/11/18 10:58 NT-Pro-B Natriuret Pep 5293 pg/mL (0-900) H 11/10/18 04:30 Vitamin B12 604.7 pg/mL (211-911) 11/11/18 10:58 Folate 8.35 ng/mL (7.3-26.0) 11/11/18 10:58 TSH 2.950 mlU/mL (0.270-4.200) 11/10/18 03:15 Urine Color Yellow (Yellow) 11/11/18 23:15 Urine Turbidity Clear (Clear) 11/11/18 23:15 Urine pH 5.0 (5.0-7.0) 11/11/18 23:15 Ur Specific Carlotta 1.010 (1.003-1.030) 11/11/18 23:15 Urine Protein 100 mg/dl mg/dL (Negative) 11/11/18 23:15 Urine Glucose (UA) Neg mg/dL (Negative) 11/11/18 23:15 Urine Ketones Neg mg/dL (Negative) 11/11/18 23:15 Urine Blood Neg (Negative) 11/11/18 23:15 Urine Nitrite Neg (Negative) 11/11/18 23:15 Urine Bilirubin Neg (Negative) 11/11/18 23:15 Urine Urobilinogen < 2.0 mg/dL (<2.0) 11/11/18 23:15 Ur Leukocyte Esterase Neg (Negative) 11/11/18 23:15 Urine WBC (Auto) 3.0 /HPF (0.0-6.0) 11/11/18 23:15 Urine RBC (Auto) 1.0 /HPF (0.0-6.0) 11/11/18 23:15 U Epithel Cells (Auto) 1.0 /HPF (0-13.0) 11/11/18 23:15 Urine Mucus Few /HPF 11/11/18 23:15 Urine Creatinine 121.5 mg/dL (0.1-20.0) H 11/11/18 23:15 Urine Sodium 71 mmol/L 11/11/18 23:15 Urine Total Protein 132 mg/dL (5-11.8) H 11/11/18 23:15 Complement C3 168 mg/dL (83-193) 11/11/18 10:58 Complement C4 44 mg/dL (15-57) 11/11/18 10:58
--- NOTE | 2018-11-14 20:54 | Consultation ---
Referred by Dr. Franklin. REASON FOR CONSULTATION: Anemia, breast cancer. HISTORY OF PRESENT ILLNESS: I saw the patient 63-year-old female in the medical floor. The patient is from [place]. She was coming to pick her daughter. She has a history of diabetes, hypertension, lymphedema and hyperlipidemia. She checked into the hotel, but was too weak to go and pick the daughter, so she came to the hospital. She was found to be anemic. GI team has seen the patient. I have been asked to evaluate the patient as iron levels were low. The patient has history of left breast cancer. This was diagnosed in 2008. She had lumpectomy, chemotherapy, radiation and 5 years of hormone blockade with local physician. I do not have details of same. She is from [place], [place]. At this time, the patient is feeling better. No headache. No visual disturbances. No ear discharge, no chest pain, no abdominal pain, no vomiting, no diarrhea, no dysuria. The patient denies any bleeding issues. PAST MEDICAL HISTORY: Hypertension, hyperlipidemia. SURGICAL HISTORY: Nonsignificant apart from lumpectomy and port placement which was removed. SOCIAL HISTORY: Lives in [place] and is planning to relocate here. FAMILY HISTORY: Hypertension. ALLERGIES: None. HOME MEDICATIONS: Include Lipitor, amlodipine, glyburide, metformin, calcium, ferrous sulfate. PHYSICAL EXAMINATION: VITAL SIGNS: Temperature is 99, pulse 82, respirations 16 and BP 139/68. HEENT: Mild pallor, no icterus. NECK: No neck lymph nodes. HEART: S1, S2. LUNGS: Clear to auscultation. ABDOMEN: Soft. EXTREMITIES: No calf tenderness. NEUROLOGIC: Alert, awake, oriented. LABORATORY DATA: White cell 5, hemoglobin 7.8, MCV 88, platelet 247, potassium 4.9, creatinine 4, B12 604, folate 8, iron level are low at 18. RADIOLOGY: Renal ultrasound was done. ASSESSMENT AND PLAN: 1. Anemia. MCV is normal. Iron is low. I discussed with the patient regarding the same. We will look into therapeutic trial with IV iron. B12 and folate are normal. 2. History of left breast cancer, status post lumpectomy, chemotherapy, radiation and 5 years of hormonal blockade. The patient had a port, which was removed. This was all done in [place]. 3. Renal impairment, Nephrology team following the patient. This may also have a role in her anemia. We will follow the trend. The patient may need a ____. 4. Diabetes. 5. Chronic kidney disease. 6. Dyslipidemia. 7. Hypertension. 8. Chronic lymphedema. 9. Ejection fraction 55%. 10. Shortness of breath due to multifactorial. I will follow the patient during inpatient stay and then later in the clinic setting. JOB# [id number] BASHIR/LILIBETH
[2018-11-14] MEDS ORDERED: LEVAQUIN 500MG/100ML 500 MG/100 ML BAG IV SCH (22:00)
[2018-11-15] MEDS: APRESOLINE PO SCH ×3 (01:06→13:20)
[2018-11-15] MEDS: HumuLIN R SUB-Q SCH ×3 (01:07→11:40)
[2018-11-15] MEDS: COREG PO SCH ×2 (01:07→11:40)
--- NOTE | 2018-11-15 07:29 | Hem/Onc Progress Note ---
Assessment and Plan 1. Anemia. MCV is normal. Iron is low. I discussed with the patient regarding the same. We will look into therapeutic trial with IV iron. B12 and folate are normal. 2. History of left breast cancer, status post lumpectomy, chemotherapy, radiation and 5 years of hormonal blockade. The patient had a port, which was removed. This was all done in [place]. 3. Renal impairment, Nephrology team following the patient. This may also have a role in her anemia. We will follow the trend. The patient may need a ____. 4. Diabetes. 5. Chronic kidney disease. 6. Dyslipidemia. 7. Hypertension. 8. Chronic lymphedema. 9. Ejection fraction 55%. 10. Shortness of breath due to multifactorial. I will follow the patient during inpatient stay and then later in the clinic setting. 11/15 - OP follow up an option - Patient Problems (1) Anemia, iron deficiency Status: Acute Subjective Date of service: 11/15/18 Principal diagnosis: anemia Interval history: feeling better Objective - Constitutional Vitals: Last Vital Signs Temp 97.9 F 11/15/18 06:07 Pulse 74 11/15/18 06:07 Resp 20 11/15/18 06:07 BP 138/57 11/15/18 06:07 Pulse Ox 91 11/15/18 06:07 Pain Intensity (0-10): denies any pain General appearance: no acute distress Performance status: 2- selfcare, ambulatory - EENT Eyes: EOM intact ENT: clear oral mucosa Lymph node exam: negative cervical - Neck Neck: normal ROM - Respiratory Respiratory effort: Positive: normal Respiratory: bilateral: CTA - Cardiovascular Heart Sounds: Present: S1 & S2 Extremities: No edema - Gastrointestinal General gastrointestinal: Present: soft, non-tender Rectal Exam: deferred - Genitourinary Female genitourinary: Present: deferred - Integumentary Integumentary: warm - Musculoskeletal Musculoskeletal: strength equal bilaterally - Neurologic Neurologic: moves all extremities - Labs Lab Results: Laboratory Results - last 24 hr 11/11/18 11/11/18 11/12/18 10:58 10:58 07:55 POC Glucose 139 H Complement C3 168 Complement C4 44 11/12/18 11/12/18 11/12/18 11:57 16:44 22:29 POC Glucose 154 H 107 H 156 H Complement C3 Complement C4 11/13/18 11/13/18 11/13/18 08:01 12:10 16:59 POC Glucose 97 161 H 111 H Complement C3 Complement C4 11/13/18 11/14/18 11/14/18 21:25 07:58 10:51 POC Glucose 172 H 153 H 188 H Complement C3 Complement C4 11/14/18 11/14/18 16:44 21:48 POC Glucose 124 H 127 H Complement C3 Complement C4 Medications & Allergies - Medications Allergies/Adverse Reactions: Allergies No Known Allergies Allergy (Verified 11/10/18 09:26) Home Medications: Home Medications Medication Instructions Recorded Confirmed Last Taken Type Furosemide [Lasix TAB] 40 mg PO QDAY #30 tablet 11/15/18 Unknown Rx RX: Acetaminophen [Acetaminophen 650 mg PO Q4H PRN #15 tablet 11/15/18 Unknown Rx TAB] RX: AtorvaSTATin [Lipitor] 40 mg PO HS #30 tablet 11/15/18 Unknown Rx RX: Calc Carb/Vit D 500 mg-200 Uni 1 each PO DAILY #30 tablet 11/15/18 Unknown Rx [Oysco D 500 mg-200 Unit] RX: Carvedilol 1 tab PO BID #60 tablet 11/15/18 Unknown Rx RX: Ferrous Sulfate [Feosol 325 MG 325 mg PO MoWeFr #30 tablet 11/15/18 Unknown Rx tab] RX: Sodium Bicarbonate 1,950 mg PO BID 30 Days tablet 11/15/18 Unknown Rx RX: amLODIPine [Norvasc] 1 tab PO DAILY #30 tablet 11/15/18 Unknown Rx RX: glyBURIDE [Glyburide] 1 tab PO DAILY #30 tablet 11/15/18 Unknown Rx RX: hydrALAZINE [Apresoline TAB] 2 tab PO QID #120 tablet 11/15/18 Unknown Rx levoFLOXacin [Levaquin TAB] 500 mg PO Q48H #2 dose 11/15/18 Unknown Rx Active Medications: Generic Name Dose Route Start Last Admin Trade Name Freq PRN Reason Stop Dose Admin Acetaminophen 650 mg 11/10/18 09:11 Tylenol PO Q4H PRN Pain MILD(1-3)/Fever >100.5/PICKERING Amlodipine Besylate 10 mg 11/10/18 11:00 11/14/18 12:38 Norvasc PO 10 mg DAILY BRANDON Administration Atorvastatin Calcium 80 mg 11/10/18 22:00 11/14/18 21:56 Lipitor PO 80 mg HS BRANDON Administration Calcium/Vitamin D 1 each 11/10/18 11:05 11/14/18 10:39 Oysco D 500 Mg-200 Unit PO 1 each DAILY BRANDON Administration Carvedilol 25 mg 11/10/18 11:00 11/15/18 01:07 Coreg PO Not Given BID BRANDON Dextrose 50 ml 11/10/18 09:11 D50w (25gm) Syringe IV PRN PRN Hypoglycemia Enoxaparin Sodium 30 mg 11/10/18 11:00 11/14/18 10:38 Lovenox SUB-Q 30 mg QDAY BRANDON Administration Ferrous Sulfate 325 mg 11/12/18 10:00 11/14/18 12:51 Feosol PO 325 mg MoWeFr BRANDON Administration Furosemide 80 mg 11/13/18 09:22 11/14/18 10:40 Lasix IV 80 mg QDAY BRANDON Administration Hydralazine HCl 25 mg 11/10/18 11:00 11/15/18 01:06 Apresoline PO Not Given QID [facility] Levofloxacin/Dextrose 500 mg in 100 mls @ 100 mls/hr 11/14/18 22:00 11/14/18 21:57 Levaquin 500mg/100ml IV 100 mls/hr Q48H BRANDON Administration Insulin Human Regular 0 units 11/10/18 11:30 11/15/18 01:07 Humulin R SUB-Q Not Given ACHS [facility] Protocol Ondansetron HCl 4 mg 11/10/18 09:11 11/13/18 17:50 Zofran IV 4 mg Q8H PRN Administration Nausea And Vomiting Sodium Bicarbonate 1,950 mg 11/12/18 09:57 11/14/18 21:53 Sodium Bicarbonate PO 1,950 mg BID BRANDON Administration Sodium Chloride 10 ml 11/10/18 11:00 11/14/18 12:53 Sodium Chloride Flush Syringe 10 Ml IV 10 ml BID BRANDON Administration Sodium Chloride 10 ml 11/10/18 09:11 Sodium Chloride Flush Syringe 10 Ml IV PRN PRN LINE FLUSH
--- NOTE | 2018-11-15 09:00 | Progress Note ---
Subjective Interval history: Patient was seen today for follow-up on multiple renal related issues Has known history of chronic kidney disease Status post hematology evaluation for anemia Vitals labs intake output medications were reviewed Past medical history: Reviewed Allergies: Reviewed Family history/social history: Reviewed Physical examination Vitals: Reviewed HEENT: Oral mucosa moist, no pallor or icterus Neck: Supple without any thyromegaly no evidence of any JVD Chest: Essentially clear to auscultation anteriorly no crackles or wheezes Heart: Regular rate and rhythm S1 and S2 heard no S3-S4 Abdomen: Soft nontender, no organomegaly no dullness in the flank Extremity: Dry skin less than 1+ peripheral edema, pitting no peripheral discoloration or cyanosis Dermatology: No petechial rashes Psychiatric: No evidence of vegetation progression Neurological: My assessment and plan are as follows Chronic kidney disease, patient will need follow-up labs, will order for basic metabolic profile Follow-up on the pending labs, renal prognosis guarded to poor patient may have stage IV chronic kidney disease Will need to do a 24-hour urine collection when she is discharged from the hospital in the office setting Multiple comorbidities for progression of renal failure over time Anemia due to chronic kidney disease rule out other causes currently being followed by hematology oncology follow-up on immunofixation Patient has been given erythropoietin as well as iron infusion, she will need further workup iron deficiency anemia Will follow-up on the pending lab including LAKESHA, immunofixation Hyperuricemia uric acid was 10 will need follow-up Ultrasonogram showed echogenic kidneys Metabolic acidosis continue to monitor bicarbonate level Diabetes mellitus type 2 long-standing more than 15 years duration current hemoglobin A1c is around 6.9 Hyponatremia, will need ongoing follow-up Adequately counseled and educated regarding all the renal related issues She will need to be seen in the office a week after discharge We'll continue to follow and make recommendation from renal standpoint Objective - Vital Signs Vital signs: Vital Signs - 12hr 11/14/18 11/14/18 11/15/18 21:47 23:31 06:07 Temperature 98.6 F 98.6 F 97.9 F Pulse Rate 78 82 74 Respiratory 16 19 20 Rate Blood Pressure 135/63 138/57 Blood Pressure 111/69 [Right] O2 Sat by Pulse 91 91 Oximetry - Lab 11/13/18 06:24 11/13/18 06:24 Most recent lab results Calcium 8.9 mg/dL (8.4-10.2) 11/13/18 06:24 Magnesium 1.70 mg/dL (1.7-2.3) 11/10/18 03:15 Urine Creatinine 121.5 mg/dL (0.1-20.0) H 11/11/18 23:15 Urine Sodium 71 mmol/L 11/11/18 23:15 Urine Total Protein 132 mg/dL (5-11.8) H 11/11/18 23:15 Medications & Allergies - Medications Allergies/Adverse Reactions: Allergies No Known Allergies Allergy (Verified 11/10/18 09:26) Home Medications: Home Medications Medication Instructions Recorded Confirmed Last Taken Type AtorvaSTATin [Lipitor] 80 mg PO HS 11/10/18 11/10/18 Unknown History Calcium Carbonate/Vitamin D3 1 tab PO DAILY 11/10/18 11/10/18 Unknown History [Calcium 500-Vit D3 600 Tablet] Carvedilol 1 tab PO BID 11/10/18 11/10/18 Unknown History Ferrous Sulfate [Iron] 325 mg PO 3XW 11/10/18 11/10/18 Unknown History Ondansetron [Zuplenz] 1 tab PO Q6HR PRN 11/10/18 11/10/18 Unknown History Sodium Bicarbonate 1 tab PO BID 11/10/18 11/10/18 Unknown History amLODIPine [Norvasc] 1 tab PO DAILY 11/10/18 11/10/18 Unknown History glyBURIDE [Glyburide] 1 tab PO DAILY 11/10/18 11/10/18 Unknown History hydrALAZINE [Apresoline TAB] 2 tab PO QID 11/10/18 11/10/18 Unknown History metFORMIN [Glucophage] 1 tab PO BID 11/10/18 11/10/18 Unknown History Active Medications: Generic Name Dose Route Start Last Admin Trade Name Freq PRN Reason Stop Dose Admin Acetaminophen 650 mg 11/10/18 09:11 Tylenol PO Q4H PRN Pain MILD(1-3)/Fever >100.5/PICKERING Amlodipine Besylate 10 mg 11/10/18 11:00 11/14/18 12:38 Norvasc PO 10 mg DAILY BRANDON Administration Atorvastatin Calcium 80 mg 11/10/18 22:00 11/14/18 21:56 Lipitor PO 80 mg HS BRANDON Administration Calcium/Vitamin D 1 each 11/10/18 11:05 11/14/18 10:39 Oysco D 500 Mg-200 Unit PO 1 each DAILY BRANDON Administration Carvedilol 25 mg 11/10/18 11:00 11/15/18 01:07 Coreg PO Not Given BID BRANDON Dextrose 50 ml 11/10/18 09:11 D50w (25gm) Syringe IV PRN PRN Hypoglycemia Enoxaparin Sodium 30 mg 11/10/18 11:00 11/14/18 10:38 Lovenox SUB-Q 30 mg QDAY BRANDON Administration Ferrous Sulfate 325 mg 11/12/18 10:00 11/14/18 12:51 Feosol PO 325 mg MoWeFr BRANDON Administration Furosemide 80 mg 11/13/18 09:22 11/14/18 10:40 Lasix IV 80 mg QDAY BRANDON Administration Hydralazine HCl 25 mg 11/10/18 11:00 11/15/18 01:06 Apresoline PO Not Given QID [facility] Levofloxacin/Dextrose 500 mg in 100 mls @ 100 mls/hr 11/14/18 22:00 11/14/18 21:57 Levaquin 500mg/100ml IV 100 mls/hr Q48H [facility] Administration Insulin Human Regular 0 units 11/10/18 11:30 11/15/18 08:22 Humulin R SUB-Q Not Given ACHS [facility] Protocol Ondansetron HCl 4 mg 11/10/18 09:11 11/13/18 17:50 Zofran IV 4 mg Q8H PRN Administration Nausea And Vomiting Sodium Bicarbonate 1,950 mg 11/12/18 09:57 11/14/18 21:53 Sodium Bicarbonate PO 1,950 mg BID BRANDON Administration Sodium Chloride 10 ml 11/10/18 11:00 11/14/18 23:00 Sodium Chloride Flush Syringe 10 Ml IV 10 ml BID BRANDON Administration Sodium Chloride 10 ml 11/10/18 09:11 Sodium Chloride Flush Syringe 10 Ml IV PRN PRN LINE FLUSH
--- NOTE | 2018-11-15 10:44 | Progress Note ---
Assessment and Plan Shortness of breath, multifactorial Severe pulmonary edema Chronic Renal failure Severe Anemia Hypertension Diabetes An echocardiogram reveal a well-preserved left ventricle systolic function, EF 55-60%. Patient refuse to have a persantine thallium stress test. We will pursue a conservative cardiac management. Subjective Date of service: 11/15/18 Interval history: Patient refused thallium stess test. Objective Vital Signs Temp Pulse Resp BP BP Pulse Ox 11/15/18 06:07 97.9 F 74 20 138/57 91 11/14/18 23:31 98.6 F 82 19 135/63 91 11/14/18 21:47 98.6 F 78 16 111/69 11/14/18 17:35 98.2 F 82 18 155/71 89 11/14/18 12:38 182/82 11/14/18 12:23 99.3 F 79 20 182/82 96 - Physical Examination General: No Apparent Distress HEENT: Positive: PERRL Neck: Positive: trachea midline Cardiac: Positive: Reg Rate and Rhythm Lungs: Positive: Decreased Breath Sounds Neuro: Positive: Grossly Intact Abdomen: Positive: Unremarkable Extremities: Present: edema
[2018-11-15] MEDS: SODIUM BICARBONATE PO SCH (11:39)
[2018-11-15] MEDS: LASIX IV SCH (11:39)
[2018-11-15] MEDS: NORVASC PO SCH (11:39)
[2018-11-15] MEDS: OYSCO D 500 MG-200 UNIT PO SCH (11:39)
[2018-11-15] MEDS: LOVENOX SUB-Q SCH (11:39)
[2018-11-15] MEDS: SODIUM CHLORIDE FLUSH SYRINGE 10 ML IV SCH (11:40)
[2018-11-15 11:41] VITALS: BP 141/60
[2018-11-15] MEDS: ZOFRAN IV PRN (14:20)
--- NOTE | 2018-11-15 14:28 | Discharge Summary ---
Providers - Providers Date of Admission: 11/10/18 05:06 Date of discharge: 11/15/18 Attending physician: SYDNEY CESAR 11/10/18 09:11 Consult to Physician [CONS] Routine Comment: Consulting Provider: DANAY GLASS Physician Instructions: Reason For Exam: elevated bnp Consult to Physician [CONS] Routine Comment: Consulting Provider: CE JACOBSON Physician Instructions: Reason For Exam: renal insufficiency 11/13/18 15:55 Consult to Physician [CONS] Routine Comment: Consulting Provider: LORETTA RODRIGUEZ Physician Instructions: Reason For Exam: iron defiency anemia, GI recommended heme consult [facility] Condition: Stable Hospital course: Patient is 63 yo woman with a history of type 2 DM, CKD 4, dyslipidemia, hypertension and chronic lymphedema who presented to [facility] ED with cough and sob. Pulse ox was only 88% on Room air Acute hypoxic respiratory failure. Etiology is multifactorial CHF exacerbation, VENKATESH/OHS +/-healthcare associated pneumonia and mild pulmonary hypertension. Patient did have recent hospitalization and chest x-ray reveals bilateral infiltrates. Resolved O2 Acute diastolic heart failure. Echocardiogram EF of 55-60%. Patient has mild concentric left ventricular hypertrophy. Right ventricular systolic pressures 40 mmHg. Cardiology following. Acute on chronic renal failure 4. Nephrology consultation pending. Suspected Healthcare associated pneumonia. Patient with recent hospitalization and bilateral infiltrates. Continue Levaquin. Diabetes mellitus type 2. Continue to hold Glucophage given the renal insufficiency. Sliding-scale regular insulin. Use glipizide. Hemoglobin A1c 6.9. Hypertension. Continue antihypertensive medications. Good control AOCD I suspect this is likely anemia of chronic kidney disease. Transfuse for hemoglobin less than 7. Check iron studies. Hyperlipidemia. Continue Lipitor. OHS/VENKATESH. Patient will likely need outpatient sleep study. Patient refused stress test. Disposition: DC-01 TO HOME OR SELFCARE Time spent for discharge: 35 minutes Core Measure Documentation - Palliative Care Palliative Care/ Comfort Measures: Not Applicable - Core Measures Any of the following diagnoses?: heart failure - VTE Discharge Requirements Deep Vein Thrombosis/Pulmonary Embolism Present on Admission: No Has pt received <5 days of overlap therapy or INR<2.0: No Anticoagulant overlap therapy prescribed at discharge: No Contraindication No Overlap Therapy order at DC: Not Indicated - Heart Failure Discharge Requirements KATE/ARB for LVSD if EF <40%: No Reason for no KATE/ARB: Renal impairment Beta arnoldo at discharge: Yes Exam - Physical Exam Narrative exam: GEN: WDWN, NAD, Awake, Alert, Orientated x 3, bmi 31.5 HEENT: NCAT, EOMI, PERRL, OP Clear NECK: supple, no adenopathy, no thyromegaly, no JVD CVS/HEART: RRR, normal S1S2, pulses present bilaterally CHEST/LUNGS: diminished bs bilateral, Symmetrical chest expansion, good air entry bilaterally GI/Abdomen: soft, NTND, good bowel sounds, no guarding or rebound /Bladder: no suprapubic tenderness, no CVA or paraspinal tenderness EXT/Skin: leg edema, no obvious rash MSK: FROM x 4 Neuro: CN 2-12 grossly intact, no new focal deficits Psych: calm - Constitutional Vitals: Temp Pulse Resp BP Pulse Ox 97.8 F 80 22 141/60 94 11/15/18 11:38 11/15/18 11:39 11/15/18 11:38 11/15/18 11:39 11/15/18 11:38 Plan Diet: low salt, diabetic Special Instructions: record daily BP diary, record blood sugar diary (three times a day with meals) Additional Instructions: 1) Make an appointment with Dr. Glass for outpatient stress test, no stress activity until cleared by Cardiology. 2) Make an appointment with Dr. Bautista for sleep study Follow up with: DANAY GLASS MD [Staff Physician] - 7 Days ANABEL GARRISON MD [Staff Physician] - 7 Days MAY BAUTISTA MD [Staff Physician] - 7 Days LORETTA RODRIGUEZ MD [Staff Physician] - 7 Days IESHA HUNTER MD [Staff Physician] - 7 Days Prescriptions: hydrALAZINE [Apresoline TAB] 2 tab PO QID #120 tablet Carvedilol 1 tab PO BID #60 tablet Ferrous Sulfate [Feosol 325 MG tab] 325 mg PO MoWeFr #30 tablet glyBURIDE [Glyburide] 1 tab PO DAILY #30 tablet Furosemide [Lasix TAB] 40 mg PO QDAY #30 tablet levoFLOXacin [Levaquin TAB] 500 mg PO Q48H #2 dose AtorvaSTATin [Lipitor] 40 mg PO HS #30 tablet amLODIPine [Norvasc] 1 tab PO DAILY #30 tablet Calc Carb/Vit D 500 mg-200 Uni [[place] D 500 mg-200 Unit] 1 each PO DAILY #30 t ablet Sodium Bicarbonate 1,950 mg PO BID 30 Days tablet
[2018-11-15 15:03] LABS: Calcium 9.3 mg/dL (8.4-10.2)
[2018-11-15 21:26] LABS: ANA Screen, IFA Positive (Negative)
== END 2018-11-15 15:30 | disposition home or self-care (01) | DRG 682 ==
LOC: ED 02:02 → 3A 05:06
PROVIDERS: ADMIT Internal Medicine; ATTEND Internal Medicine
DX: N17.0 Acute kidney failure with tubular necrosis (principal); I50.31 Acute diastolic (congestive) heart failure; J96.01 Acute respiratory failure with hypoxia; J18.9 Pneumonia, unspecified organism; I13.0 Hypertensive heart and chronic kidney disease with heart failure and stage 1 through stage 4 chronic kidney disease, or unspecified chronic kidney disease; E66.2 Morbid (severe) obesity with alveolar hypoventilation; E87.2 Acidosis; E87.1 Hypo-osmolality and hyponatremia; N18.4 Chronic kidney disease, stage 4 (severe); E11.22 Type 2 diabetes mellitus with diabetic chronic kidney disease; E78.5 Hyperlipidemia, unspecified; Y95 Nosocomial condition; D64.9 Anemia, unspecified; D63.1 Anemia in chronic kidney disease; I27.20 Pulmonary hypertension, unspecified; D50.9 Iron deficiency anemia, unspecified; Z79.84 Long term (current) use of oral hypoglycemic drugs; Z68.31 Body mass index [BMI] 31.0-31.9, adult; Z85.3 Personal history of malignant neoplasm of breast
CPT/HCPCS: 36415; 71045; 76770; 80048; 81001; 82140; 82570; 82607; 82747; 82962; 83036; 83550; 83735; 83880; 83930; 83970; 84156; 84300; 84443; 84550; 85025; 85027; 85045; 85610; 86038; 86160; 86334; 87040; 93005; 93010; 93306; 94760; G0378; A9270-GY; J0885; J1650; J1815; J1940; J1956; J2405; J2916

== ENCOUNTER 2018-11-30 10:08 | Outpatient (CLI) | payer BC ==
[2018-11-30 10:46] LABS: Hematocrit 24.6 % (30.3-42.9); Hemoglobin 8.3 gm/dl (10.1-14.3); Mean Corpuscular HGB Conc 34 % (30-34); Mean Corpuscular Volume 88 fl (79-97); Platelet Count 198 K/mm3 (140-440); Red Blood Count 2.81 M/mm3 (3.65-5.03); Red Cell Distribution Width 14.3 % (13.2-15.2)
[2018-11-30 11:01] LABS: Albumin 3.6 g/dL (3.9-5); Calcium 8.8 mg/dL (8.4-10.2)
== END 2018-11-30 10:09 | disposition home or self-care (01) ==
LOC: LAB 10:08
PROVIDERS: ATTEND Internal Medicine
DX: R94.4 Abnormal results of kidney function studies (principal); I10 Essential (primary) hypertension
CPT/HCPCS: 36415; 80048; 82040; 84100; 85027

== ENCOUNTER 2019-01-30 15:53 | Outpatient (CLI) | payer BC ==
[2019-01-30 16:21] LABS: Basophils % (Auto) 0.3 % (0.0-1.8); Eosinophils # (Auto) 0.1 K/mm3 (0.0-0.4); Eosinophils % (Auto) 3.1 % (0.0-4.3); Hematocrit 24.7 % (30.3-42.9); Hemoglobin 8.6 gm/dl (10.1-14.3); Lymphocytes # (Auto) 0.7 K/mm3 (1.2-5.4); Mean Corpuscular HGB Conc 35 % (30-34); Mean Corpuscular Volume 86 fl (79-97); Monocytes # (Auto) 0.3 K/mm3 (0.0-0.8); Monocytes % (Auto) 6.7 % (0.0-7.3); Platelet Count 170 K/mm3 (140-440); Red Blood Count 2.87 M/mm3 (3.65-5.03)
[2019-01-30 16:52] LABS: Calcium 9.1 mg/dL (8.4-10.2)
== END 2019-01-30 15:54 | disposition home or self-care (01) ==
LOC: LAB 15:53
PROVIDERS: ATTEND Internal Medicine
DX: R94.4 Abnormal results of kidney function studies (principal); I10 Essential (primary) hypertension
CPT/HCPCS: 36415; 80048; 82040; 84100; 85025

== ENCOUNTER 2019-03-27 06:47 | Outpatient (CLI) | payer BC ==
[2019-03-27 07:13] LABS: Hematocrit 23.5 % (30.3-42.9); Hemoglobin 8.1 gm/dl (10.1-14.3); Mean Corpuscular HGB Conc 35 % (30-34); Mean Corpuscular Volume 88 fl (79-97); Platelet Count 188 K/mm3 (140-440); Red Blood Count 2.67 M/mm3 (3.65-5.03); Red Cell Distribution Width 14.2 % (13.2-15.2)
[2019-03-27 07:36] LABS: Albumin 4.1 g/dL (3.9-5); Calcium 9.6 mg/dL (8.4-10.2)
== END 2019-03-27 06:48 | disposition home or self-care (01) ==
LOC: LAB 06:47
PROVIDERS: ATTEND Internal Medicine
DX: I12.9 Hypertensive chronic kidney disease with stage 1 through stage 4 chronic kidney disease, or unspecified chronic kidney disease (principal); E11.22 Type 2 diabetes mellitus with diabetic chronic kidney disease; N18.4 Chronic kidney disease, stage 4 (severe); E87.2 Acidosis; D63.1 Anemia in chronic kidney disease; E87.1 Hypo-osmolality and hyponatremia; R94.4 Abnormal results of kidney function studies
CPT/HCPCS: 36415; 80048; 82040; 82565; 82570; 82575; 84100; 84156; 85027

== ENCOUNTER 2019-06-05 13:08 | Outpatient (CLI) | payer BC ==
--- NOTE | 2019-06-06 09:40 | Mammography Report ---
DIGITAL DIAGNOSTIC MAMMOGRAM WITH CAD, -- 06/05/2019 INDICATION: Breast cancer survivor status post left partial mastectomy with radiation therapy and giovanna motherapy. Her surgery was approximately 5 years ago. TECHNIQUE: Digital bilateral mammographic imaging was performed. Magnification views were obtained. This examination was interpreted with the benefit of Computer-aided Detection analysis. COMPARISON: None available. Her previous mammograms were in [place], [place]. FINDINGS: Breast Density: The breasts are heterogeneously dense, which may obscure small masses. There is no evidence of dominant mass, suspicious calcifications or architectural distortion in eithe r breast. The left breast is slightly smaller than the right. Moderate skin thickening of the left br east. IMPRESSION: No mammographic evidence of malignancy. Follow up recommendation: Routine yearly BI-RADS Category 2: Benign. A "normal" or negative report should not discourage follow up or biopsy of a clinically significant f inding. A written summary of these findings will be mailed to the patient. The patient will be entered into a mammography reporting system which will generate a reminder letter for the patient's next appointmen t at the appropriate interval. According to the [employer], yearly mammograms are recommended starting at age 40 and continuing as long as a woman is in good health. Breast MRI is recommended for women with an taylor roximately 20-25% or greater lifetime risk of breast cancer, including women with a strong family his tory of breast or ovarian cancer and women who have been treated for Hodgkin's disease. Signer Name: Tristin Raya MD Signed: 06/06/2019 9:35 AM Workstation Name: [id number]
== END 2019-06-05 13:09 | disposition home or self-care (01) ==
LOC: MAMMO 13:08
PROVIDERS: ATTEND Internal Medicine Hematology & Oncology
DX: C50.812 Malignant neoplasm of overlapping sites of left female breast (principal); I10 Essential (primary) hypertension
CPT/HCPCS: 77066

== ENCOUNTER 2019-08-29 12:52 | Outpatient (CLI) | payer BC ==
[2019-08-29 13:21] LABS: Hematocrit 24.7 % (30.3-42.9); Hemoglobin 8.5 gm/dl (10.1-14.3); Mean Corpuscular HGB Conc 34 % (30-34); Mean Corpuscular Volume 87 fl (79-97); Platelet Count 186 K/mm3 (140-440); Red Blood Count 2.85 M/mm3 (3.65-5.03); Red Cell Distribution Width 15.3 % (13.2-15.2)
[2019-08-29 13:24] LABS: Creatinine,Urine 106.4 mg/dL (0.1-20.0); Protein/Creatinine Ratio,Urine 1.75
[2019-08-29 13:43] LABS: Albumin 4.3 g/dL (3.9-5); Calcium 9.6 mg/dL (8.4-10.2)
== END 2019-08-29 12:53 | disposition home or self-care (01) ==
LOC: LAB 12:52
PROVIDERS: ATTEND Internal Medicine
DX: I12.9 Hypertensive chronic kidney disease with stage 1 through stage 4 chronic kidney disease, or unspecified chronic kidney disease (principal); E11.22 Type 2 diabetes mellitus with diabetic chronic kidney disease; N18.4 Chronic kidney disease, stage 4 (severe); E87.2 Acidosis; D63.1 Anemia in chronic kidney disease; E87.1 Hypo-osmolality and hyponatremia
CPT/HCPCS: 36415; 80048; 82040; 82570; 84100; 84156; 85027

== ENCOUNTER 2019-09-26 15:30 | Outpatient (CLI) | payer BC ==
[2019-09-26 15:51] LABS: Basophils % (Auto) 0.4 % (0.0-1.8); Eosinophils # (Auto) 0.1 K/mm3 (0.0-0.4); Eosinophils % (Auto) 3.5 % (0.0-4.3); Hematocrit 27.8 % (30.3-42.9); Hemoglobin 9.3 gm/dl (10.1-14.3); Lymphocytes # (Auto) 0.9 K/mm3 (1.2-5.4); Lymphocytes % (Auto) 24.6 % (13.4-35.0); Mean Corpuscular HGB Conc 34 % (30-34); Mean Corpuscular Volume 91 fl (79-97); Monocytes # (Auto) 0.3 K/mm3 (0.0-0.8); Monocytes % (Auto) 8.6 % (0.0-7.3); Platelet Count 228 K/mm3 (140-440); Red Blood Count 3.07 M/mm3 (3.65-5.03); Red Cell Distribution Width 14.6 % (13.2-15.2)
[2019-09-26 16:24] LABS: Creatinine,Urine 64.8 mg/dL (0.1-20.0)
[2019-09-26 16:27] LABS: Albumin 4.2 g/dL (3.9-5)
[2019-09-26 16:44] LABS: Calcium 9.2 mg/dL (8.4-10.2)
== END 2019-09-26 15:31 | disposition home or self-care (01) ==
LOC: LAB 15:30
PROVIDERS: ATTEND Internal Medicine
DX: N18.4 Chronic kidney disease, stage 4 (severe) (principal)
CPT/HCPCS: 36415; 80053; 82570; 84156; 85025

== ENCOUNTER 2020-02-07 14:33 | Outpatient (CLI) | payer BC ==
[2020-02-07 15:06] LABS: Basophils % (Auto) 0.6 % (0.0-1.8); Eosinophils # (Auto) 0.2 K/mm3 (0.0-0.4); Eosinophils % (Auto) 3.1 % (0.0-4.3); Hematocrit 23.1 % (30.3-42.9); Lymphocytes % (Auto) 20.4 % (13.4-35.0); Mean Corpuscular HGB Conc 35 % (30-34); Mean Corpuscular Volume 88 fl (79-97); Monocytes # (Auto) 0.4 K/mm3 (0.0-0.8); Monocytes % (Auto) 7.5 % (0.0-7.3); Platelet Count 213 K/mm3 (140-440); Red Blood Count 2.62 M/mm3 (3.65-5.03); Red Cell Distribution Width 13.4 % (13.2-15.2)
[2020-02-07 15:20] LABS: Albumin 4.2 g/dL (3.9-5); Calcium 8.9 mg/dL (8.4-10.2)
[2020-02-07 16:16] LABS: Creatinine 24 Hour,Urine 0.9 (0.8-2.8); Creatinine,Urine 49.2 mg/dL (0.1-20.0)
== END 2020-02-07 14:34 | disposition home or self-care (01) ==
LOC: LAB 14:33
PROVIDERS: ATTEND Internal Medicine
DX: N18.4 Chronic kidney disease, stage 4 (severe) (principal)
CPT/HCPCS: 36415; 80053; 82565; 82570; 82575; 84156; 85025

== ENCOUNTER 2020-05-01 15:10 | Outpatient (CLI) | payer BC ==
[2020-05-01 15:49] LABS: Basophils % (Auto) 0.5 % (0.0-1.8); Eosinophils # (Auto) 0.7 K/mm3 (0.0-0.4); Eosinophils % (Auto) 11.7 % (0.0-4.3); Hematocrit 22.3 % (30.3-42.9); Hemoglobin 7.6 gm/dl (10.1-14.3); Lymphocytes # (Auto) 0.8 K/mm3 (1.2-5.4); Lymphocytes % (Auto) 12.6 % (13.4-35.0); Mean Corpuscular HGB Conc 34 % (30-34); Mean Corpuscular Volume 89 fl (79-97); Monocytes # (Auto) 0.5 K/mm3 (0.0-0.8); Monocytes % (Auto) 8.3 % (0.0-7.3); Platelet Count 199 K/mm3 (140-440); Red Blood Count 2.49 M/mm3 (3.65-5.03); Red Cell Distribution Width 14.9 % (13.2-15.2)
[2020-05-01 16:01] LABS: Albumin 4.3 g/dL (3.9-5); Calcium 9.4 mg/dL (8.4-10.2)
[2020-05-01 17:48] LABS: Protein/Creatinine Ratio,Urine 0.8
== END 2020-05-01 15:11 | disposition home or self-care (01) ==
LOC: LAB 15:10
PROVIDERS: ATTEND Internal Medicine
DX: N18.4 Chronic kidney disease, stage 4 (severe) (principal)
CPT/HCPCS: 36415; 80048; 82040; 82570; 84100; 84156; 85025